=== PATIENT | female | born 1930 | race Caucasian/White ===

== ENCOUNTER 2017-03-02 17:21 | Inpatient (IN) | payer MEDICARE, OTHER ==
[~2017-03-02] VITALS: Ht 152.4 cm; Wt 43.1 kg
[~2017-03-02 17:21] MED LIST: DIOV40TA PO; DULO20 PO; PRAD75CA PO
[2017-03-02 17:25] VITALS: BP 144/71; PULSE 91; RESP 16; TEMP 98.1; O2SAT 96
[2017-03-02] MEDS ORDERED: TRAM50TA PO (18:42)
[2017-03-02] MEDS ORDERED: CART120C PO (18:42)
[2017-03-02] MEDS ORDERED: CYMB30CA PO (18:42)
[2017-03-02] MEDS ORDERED: LOSA25TA PO (18:42)
[2017-03-02] MEDS ORDERED: APIX2.5T PO (18:42)
[2017-03-02] MEDS ORDERED: SUCR1TAB PO (18:42)
--- NOTE | 2017-03-02 18:54 | PD ---
HPI Chief Complaint: Fall Time Seen by Provider: 18:40 Travel History International Travel<30 days: No Contact w/Intl Traveler<30days: No Traveled to known affect area: No History of Present Illness HPI 86 years old female complaining of left groin pain, left low quadrant abdominal pain, left ankle pain. Patient fell 3 days ago. Patient states that she hit the left side of face however denies any headache or neck pain. Patient complains of persistent pain on the left groin since then. Patient is not having started having left lower quadrant abdominal pain today. Patient also complaining of left ankle pain today. Patient denies loss of consciousness. Patient denies any chest pain or shortness of breath. Denies back pain. Patient denies any nausea vomiting diarrhea. Patient denies any focal weakness or numbness of extremity. Patient has history of atrial fibrillation, heart valve disease, stent placement and on Eliquis. Patient also has history hypertension, depression, status post appendectomy and hysterectomy. Patient's [facility] consultant Dr. Means. PFSH Past Medical History Hx Anticoagulant Therapy: Yes (ELIQUIS) Atrial Fibrillation: Yes Depression: Yes Cardiovascular Problems: Yes ("Leaky valve") Hypertension: Yes Tetanus Vaccination: > 5 Years Influenza Vaccination: No Past Surgical History Appendectomy: Yes Cardiac Surgery: Yes (Cardiac stent ) Hysterectomy: Yes Social History Alcohol Use: No Tobacco Use: No Substance Use: No Allergies-Medications (Allergen,Severity, Reaction): Coded Allergies: Demerol (Verified Allergy, Severe, Wheezing, 03/02/17) Penicillin (Verified Allergy, Severe, Hives, 03/02/17) Aspirin (Verified Allergy, Intermediate, MED INTERACTION, 03/02/17) Reported Meds & Prescriptions Reported Meds & Active Scripts Active Reported Sucralfate 1 Gm Tab 1 Gm PO Q12HR on empty stomach Losartan (Losartan Potassium) 25 Mg Tab 12.5 Mg PO DAILY Cartia Xt (Diltiazem ER 24 HR) 120 Mg Caper 120 Mg PO DAILY Cymbalta DR (Duloxetine HCl) 30 Mg Capdr 30 Mg PO DIRECTED Eliquis (Apixaban) 2.5 Mg Tab 2.5 Mg PO BID Tramadol (Tramadol HCl) 50 Mg Tab 50 Mg PO Q6H PRN Review of Systems General / Constitutional: No: Fever Eyes: No: Visual changes HENT: No: Headaches Cardiovascular: No: Chest Pain or Discomfort Respiratory: No: Shortness of Breath Gastrointestinal: Positive: Abdominal Pain Genitourinary: No: Dysuria Musculoskeletal: Positive: Pain Skin: No Rash Neurologic: No: Weakness Psychiatric: No: Depression Endocrine: No: Polydipsia Hematologic/Lymphatic: No: Easy Bruising Physical Exam Narrative GENERAL: Well-nourished, well-developed patient. SKIN: Focused skin assessment warm/dry. HEAD: Normocephalic. EYES: No scleral icterus. No injection or drainage. NECK: Supple, trachea midline. No JVD or lymphadenopathy. CARDIOVASCULAR: Regular rate and rhythm without murmurs, gallops, or rubs. RESPIRATORY: Breath sounds equal bilaterally. No accessory muscle use. GASTROINTESTINAL: Abdomen soft, nondistended. Patient had mild tenderness on palpation left lower quadrant left inguinal area. Patient has a ventral hernia. MUSCULOSKELETAL: No cyanosis, or edema. Patient has moderate tenderness to palpation of left inguinal area lateral aspect left hip. Decreased range of motion the left hip joint. Mild diffuse tenderness over the left ankle joint. BACK: Nontender without obvious deformity. No CVA tenderness. Neurologic exam: Patient awake and alert. Patient moves all extremities except decrease in range of motion of left leg. No obvious focal neurological deficit. Data Data Last Documented VS Vital Signs Date Time Temp Pulse Resp B/P Pulse Ox O2 Delivery O2 Flow Rate FiO2 03/02/17 19:15 97.8 88 18 127/72 97 Room Air Orders Complete Blood Count With Diff (03/02/17 18:46) Comprehensive Metabolic Panel (03/02/17 18:46) Prothrombin Time / Inr (Pt) (03/02/17 18:46) Act Partial Throm Time (Ptt) (03/02/17 18:46) Urinalysis - C+S If Indicated (03/02/17 18:46) Chest, Single Ap (03/02/17 18:46) Iv Access Insert/Monitor (03/02/17 18:46) Ecg Monitoring (03/02/17 18:46) Oximetry (03/02/17 18:46) Hip, Uni(Ap&Lat) W Ap Pelvis (03/02/17 18:46) Ankle, Complete ([id number]) (03/02/17 18:46) Electrocardiogram (03/02/17 20:26) Urinary Catheter Insert/Apply (03/02/17 20:26) Type And Screen (03/02/17 20:26) Sodium Chlor 0.9% 1000 Ml Inj (Ns 1000 M (03/02/17 20:30) Admit Order (Ed Use Only) (03/02/17 20:43) Admit To Inpatient (03/02/17 ) Vital Signs (Adult) Q4H (03/02/17 20:43) Activity Bed Rest (03/02/17 20:43) A And P Technician / Telemetry .CONTINUOUS (03/02/17 20:43) Sodium Chloride 0.9% Flush (Ns Flush) (03/02/17 20:45) Sodium Chloride 0.9% Flush (Ns Flush) (03/02/17 21:00) Ondansetron Inj (Zofran Inj) (03/02/17 20:45) Basic Metabolic Panel (Bmp) (03/03/17 06:00) Complete Blood Count With Diff (03/03/17 06:00) Case Management Consult (03/02/17 20:43) Naloxone Inj (Narcan Inj) (03/02/17 20:45) Inpatient Certification (03/02/17 ) Hydromorphone Pf Inj (Dilaudid Pf Inj) (03/02/17 20:45) Consult Orthopedic (03/02/17 ) Labs Laboratory Tests Test 03/02/17 03/02/17 19:00 19:10 Urine Color YELLOW Urine Turbidity CLEAR Urine pH 6.0 Urine Specific [place] 1.014 Urine Protein NEG mg/dL Urine Glucose (UA) 100 mg/dL Urine Ketones NEG mg/dL Urine Occult Blood NEG Urine Nitrite NEG Urine Bilirubin NEG Urine Leukocyte Esterase NEG Urine RBC 4-9 /hpf Urine WBC 0-2 /hpf Urine Squamous Epithelial 0-5 /hpf Cells Urine Calcium Oxalate Crystals FEW /hpf Urine Hyaline Casts 0-2 /lpf Urine Mucus OCC /lpf Microscopic Urinalysis Comment CULT NOT INDICATED White Blood Count 5.6 TH/MM3 Red Blood Count 4.19 MIL/MM3 Hemoglobin 12.5 GM/DL Hematocrit 37.8 % Mean Corpuscular Volume 90.1 FL Mean Corpuscular Hemoglobin 29.9 PG Mean Corpuscular Hemoglobin 33.2 % Concent Red Cell Distribution Width 13.7 % Platelet Count 173 TH/MM3 Mean Platelet Volume 8.8 FL Neutrophils (%) (Auto) 69.5 % Lymphocytes (%) (Auto) 16.1 % Monocytes (%) (Auto) 8.9 % Eosinophils (%) (Auto) 5.0 % Basophils (%) (Auto) 0.5 % Neutrophils # (Auto) 3.9 TH/MM3 Lymphocytes # (Auto) 0.9 TH/MM3 Monocytes # (Auto) 0.5 TH/MM3 Eosinophils # (Auto) 0.3 TH/MM3 Basophils # (Auto) 0.0 TH/MM3 CBC Comment DIFF FINAL Differential Comment Prothrombin Time 11.3 SEC Prothromb Time International 1.0 RATIO Ratio Activated Partial 38.5 SEC Thromboplast Time Sodium Level 138 MEQ/L Potassium Level 3.7 MEQ/L Chloride Level 102 MEQ/L Carbon Dioxide Level 29.0 MEQ/L Anion Gap 7 MEQ/L Blood Urea Nitrogen 20 MG/DL Creatinine 0.64 MG/DL Estimat Glomerular Filtration 88 ML/MIN Rate Random Glucose 85 MG/DL Calcium Level 8.9 MG/DL Total Bilirubin 0.5 MG/DL Aspartate Amino Transf 16 U/L (AST/SGOT) Alanine Aminotransferase 18 U/L (ALT/SGPT) Alkaline Phosphatase 56 U/L Total Protein 6.2 GM/DL Albumin 3.0 GM/DL MDM Medical Decision Making Medical Screen Exam Complete: Yes Emergency Medical Condition: Yes Interpretation(s) 2028 PM Last Impressions Hip and Pelvis X-Ray 03/02/171845 Signed Impressions: Service Date/Time: Thursday, March 02, 2017 19:27 - CONCLUSION: Subcapital left femoral neck fracture. Peyman James MD Chest X-Ray 03/02/171845 Signed Impressions: Service Date/Time: Thursday, March 02, 2017 19:39 - CONCLUSION: 1. Cardiomegaly. 2. Retrocardiac density likely hiatal hernia. Pyeman James MD Ankle X-Ray 03/02/171845 Signed Impressions: Service Date/Time: Thursday, March 02, 2017 19:35 - CONCLUSION: 1. No fracture. 2. Soft tissue swelling. 3. Pes planus. 4. Arthropathy talocalcaneal joints. Peyman James MD 2028 PM. CBC within normal limit. CMP within normal limit. UA negative. Differential Diagnosis Differential diagnoses include contusion, fracture, dislocation. Narrative Course 86 years old female with left groin pain, left ankle pain. Status post fall. Patient has history of atrial fibrillation on Eliquis. Normal saline solution 70 cc an hour. I spoke with Dr. Conn, orthopedist numerical control nesting operator. Advised nothing by mouth post midnight. Admit to medical service at the [facility]. Diagnosis Primary Impression: Fracture of femoral neck, left Qualified Code: S72.002A - Closed fracture of neck of left femur, initial encounter Additional Impression: HX: anticoagulation Admitting Information Admitting Physician Requests: it Cameron Cox MD Mar 02, 2017 18:54
[2017-03-02 19:15] VITALS: BP 127/72; PULSE 88; RESP 18; TEMP 97.8; O2SAT 97
[2017-03-02 19:19] LABS: BLOOD, URINE NEG (NEG); GLUCOSE,URINE 100 mg/dL (NEG); KETONE, URINE NEG (NEG); NITRITE,URINE NEG (NEG)
[2017-03-02 19:20] LABS: AUTOMATED NEUTROPHIL # 3.9 TH/MM3 (1.8-7.7); BASOPHIL % 0.5 % (0.0-2.0); EOSINOPHIL # 0.3 TH/MM3 (0-0.4); HEMATOCRIT 37.8 % (35.0-46.0); HEMO FLAGS DIFF FINAL; LYMPH % 16.1 % (9.0-44.0); LYMPHOCYTE # 0.9 TH/MM3 (1.0-4.8); MEAN CELL VOLUME 90.1 FL (80.0-100.0); MEAN CORPUSCULAR HEMOGLOBIN 29.9 PG (27.0-34.0); MEAN CORPUSCULAR HGB CONC 33.2 % (32.0-36.0); MONO % 8.9 % (0.0-8.0); NEUT % 69.5 % (16.0-70.0); PLATELET COUNT 173 TH/MM3 (150-450); RED BLOOD COUNT 4.19 MIL/MM3 (4.00-5.30); RED CELL DISTRIBUTION WIDTH 13.7 % (11.6-17.2); WHITE BLOOD COUNT 5.6 TH/MM3 (4.0-11.0)
[2017-03-02 19:32] LABS: APTT (PATIENT) 38.5 SEC (24.3-30.1); PROTHROMBIN TIME - PATIENT 11.3 SEC (9.8-11.6)
[2017-03-02 19:32] LABS: URINE COLOR YELLOW (YELLW/STRAW)
[2017-03-02 19:34] LABS: HYALINE CAST, URINE 0-2 /lpf (RARE); MUCUS URINE OCC /lpf (OCC); SQUAMOUS EPITHELIAL CELL URINE 0-5 /hpf (0-5)
[2017-03-02 19:39] LABS: CALCIUM OXALATE CRYSTALS,URINE FEW /hpf; COMMENT (UR) CULT NOT INDICATED; CULTURE IF INDICATED CULT NOT INDICATED; WBC, URINE 0-2 /hpf (0-5)
[2017-03-02 19:47] LABS: CHLORIDE 102 MEQ/L (98-107); POTASSIUM 3.7 MEQ/L (3.5-5.1); SODIUM (NA) 138 MEQ/L (136-145)
[2017-03-02 19:51] LABS: ANION GAP 7 MEQ/L (5-15); BLOOD UREA NITROGEN 20 MG/DL (7-18)
[2017-03-02 19:54] LABS: ALT (GPT) 18 U/L (10-53); AST (GOT) 16 U/L (15-37); GLOMERULAR FILTRATION RATE 88 ML/MIN (>89)
[2017-03-02 19:55] LABS: TOTAL BILIRUBIN ADULT 0.5 MG/DL (0.2-1.0)
[2017-03-02 19:56] LABS: ALKALINE PHOSPHATASE 56 U/L (45-117)
--- NOTE | 2017-03-02 19:57 | RADRPT ---
EXAM DATE/TIME: 03/02/2017 19:39 [facility] COMPARISON: No previous studies available for comparison. INDICATIONS : Rib pain after falling 4 days ago. MEDICAL HISTORY : Atrial fibrillation. SURGICAL HISTORY : Appendectomy. Hysterectomy. Coronary artery stent. ENCOUNTER: Initial ACUITY: 4 - 6 days PAIN SCORE: 5/10 LOCATION: Bilateral chest FINDINGS: A single view of the chest demonstrates the lungs to be symmetrically aerated without evidence of mas s, infiltrate or effusion. Cardiomegaly. Retrocardiac density.. Osseous structures are intact. CONCLUSION: 1. Cardiomegaly. 2. Retrocardiac density likely hiatal hernia. Peyman James MD on March 02, 2017 at 19:55 Board Certified Radiologist. This report was verified electronically.
--- NOTE | 2017-03-02 19:59 | RADRPT ---
EXAM DATE/TIME: 03/02/2017 19:35 [facility] COMPARISON: No previous studies available for comparison. INDICATIONS : Left ankle pain and swelling after falling 4 days ago. MEDICAL HISTORY : None. SURGICAL HISTORY : None. ENCOUNTER: Initial ACUITY: 4 - 6 days PAIN SCORE: 5/10 LOCATION: Left ankle. FINDINGS: Three view exam was performed of the left ankle. The bony structures are in normal alignment. No ev idence of fracture, dislocation.. The ankle mortise is intact. No radiopaque foreign bodies are see n. Bony mineralization is under mineralized. Pes planus. Soft tissue swelling. Arthropathy at taloca lcaneal joints. CONCLUSION: 1. No fracture. 2. Soft tissue swelling. 3. Pes planus. 4. Arthropathy talocalcaneal joints. Peyman James MD on March 02, 2017 at 19:55 Board Certified Radiologist. This report was verified electronically.
--- NOTE | 2017-03-02 20:04 | RADRPT ---
EXAM DATE/TIME: 03/02/2017 19:27 [facility] COMPARISON: No previous studies available for comparison. INDICATIONS : Left hip pain after falling 4 days ago. MEDICAL HISTORY : None. SURGICAL HISTORY : None. ENCOUNTER: Initial ACUITY: 4 - 6 days PAIN SCORE: 7/10 LOCATION: Left hip. FINDINGS: Examination of the left hip was performed with AP Pelvis. Subcapital femoral neck fracture with minim al displacement. Mild degenerative changes. Soft tissue swelling.. The acetabulum is grossly intact. CONCLUSION: Subcapital left femoral neck fracture. Peyman James MD on March 02, 2017 at 20:02 Board Certified Radiologist. This report was verified electronically.
[2017-03-02 20:15] VITALS: BP 146/78; PULSE 90; RESP 18; O2SAT 95
[2017-03-02] MEDS ORDERED: SODIUM CHLOR 0.9% 1000 ML INJ 1,000 ML IV SCH (20:30)
[2017-03-02] MEDS ORDERED: ONDANSETRON HCL 4 MG/2 ML VIAL IVP PRN (20:45)
[2017-03-02] MEDS ORDERED: HYDROmorphone HCL PF 1 MG/ML VIAL IV PUSH PRN (20:45)
[2017-03-02] MEDS ORDERED: SODIUM CHLORIDE 0.9% FLUSH 10 ML FLUSH IV FLUSH PRN (20:45)
[2017-03-02] MEDS ORDERED: NALOXONE HCL 0.4 MG/ML AMP IV PRN (20:45)
[2017-03-02] MEDS ORDERED: SODIUM CHLORIDE 0.9% FLUSH 10 ML FLUSH IV FLUSH SCH (21:00)
[2017-03-02 21:15] VITALS: BP 141/83; PULSE 92; RESP 18; O2SAT 97
[2017-03-02 22:15] VITALS: BP 143/75; PULSE 88; RESP 16; O2SAT 95
[2017-03-02 23:15] VITALS: BP 153/68; PULSE 87; RESP 16; O2SAT 95
[2017-03-03] VITALS (11 sets, daily range): BP systolic 110–168; BP diastolic 62–85; PULSE 83–92; RESP 16–20; TEMP 95.7–98.2; O2SAT 94–100
[2017-03-03] MEDS ORDERED: HYDROmorphone HCL PF 1 MG/ML VIAL IV PUSH PRN (01:15)
--- NOTE | 2017-03-03 04:24 | HHI.HP ---
[facility] Tone Vael[facility] M.D. Admission Diagnosis fracture left femoral neck. Patient's on anticoagulation. Diagnoses: (1) Fracture of femoral neck, left Chief Complaint: Left hip pain s/p fall Travel History International Travel<30 Days: No Contact w/Intl Traveler <30 Da: No Traveled to Known Affected Are: No History of Present Illness Written by Farhana Miranda, acting as scribe for Dr. Mcfarland on 03/03/17 at 04:24. The patient states that she fell on Wednesday and has had progressively worsening pain. She was at her grandson's house, turned around, didn't see ottoman, and tripped over an ottoman that she did not see Reports weight loss over the past year or so Hit her head during fall Grandson helped her back up Reports generalized weakness Denies fever, n/v/d, black or red stool, hematuria, chest pain, shortness of breath Reports some dysuria, frequent urination, a little bit of dizziness, fatigue Review of Systems Except as stated in HPI: all other systems reviewed are Neg Past Family Social History Past Medical History Formerly on thyroid medications but hasn't been on for years - states blood work has been normal Hypertension CAD s/p stent placement Atrial fibrillation chronic pain in back and joints Denies COPD, emphysema, asthma, liver problems, kidney problems, DVT, PE, CVA, seizures, cancers . Past Surgical History Cardiac stent C Section Hysterectomy Appendectomy . Reported Medications Reported Meds & Active Scripts Active Reported Sucralfate 1 Gm Tab 1 Gm PO Q12HR on empty stomach Losartan (Losartan Potassium) 25 Mg Tab 12.5 Mg PO DAILY Cartia Xt (Diltiazem ER 24 HR) 120 Mg Caper 120 Mg PO DAILY Cymbalta DR (Duloxetine HCl) 30 Mg Capdr 30 Mg PO DIRECTED Eliquis (Apixaban) 2.5 Mg Tab 2.5 Mg PO BID Tramadol (Tramadol HCl) 50 Mg Tab 50 Mg PO Q6H PRN . Allergies: Coded Allergies: Demerol (Verified Allergy, Severe, Wheezing, 03/02/17) Penicillin (Verified Allergy, Severe, Hives, 03/02/17) Aspirin (Verified Allergy, Intermediate, MED INTERACTION, 03/02/17) Active Ordered Medications Current Medications Sodium Chloride (NS 1000 ml Inj) 1,000 ml @ 70 mls/hr [id number] IV Last administered on 03/02/17 21:33; Start 03/02/17 at 20:30 Sodium Chloride (NS Flush) 2 ml UNSCH PRN IV FLUSH FLUSH AFTER USING IV ACCESS ; Start 03/02/17 at 20:45 Sodium Chloride (NS Flush) 2 ml BID IV FLUSH ; Start 03/02/17 at 21:00 Ondansetron HCl (Zofran Inj) 4 mg Q6H PRN IVP NAUSEA OR VOMITING; Start at 20:45 Naloxone HCl (Narcan Inj) 0.4 mg UNSCH PRN IV SEE LABEL COMMENTS; Start at 20:45 Hydromorphone HCl (Dilaudid Pf Inj) 0.2 mg Q4H PRN IV PUSH pain >5 Last administered on 03/02/17 21:33; Start 03/02/17 at 20:45; Stop 03/03/17 at 01:03 ; Status DC Hydromorphone HCl (Dilaudid Pf Inj) 0.2 mg Q3H PRN IV PUSH pain >5 Last administered on 03/03/17 01:28; Start 03/03/17 at 01:15 . Family History brother had bone cancer father had enlarged heart mother with heart problems . Social History in 2008 Relocated here to be near daughter in 2009 Tobacco: denies Alcohol: denies . Physical Exam Vital Signs Vital Signs Date Time Temp Pulse Resp B/P Pulse Ox O2 Delivery O2 Flow Rate FiO2 03/03/17 03:05 88 18 142/76 95 03/03/17 02:15 98.2 88 16 168/77 95 Room Air 03/03/17 01:15 88 16 150/79 94 Room Air 03/03/17 00:15 88 18 157/85 94 Room Air 03/03/17 00:04 Room Air 03/02/17 23:15 95 Room Air 03/02/17 23:15 87 16 153/68 95 Room Air 03/02/17 22:15 88 16 143/75 95 Room Air 03/02/17 22:00 16 03/02/17 21:15 92 18 141/83 97 Room Air 03/02/17 20:15 90 18 146/78 95 Room Air 03/02/17 19:15 97.8 88 18 127/72 97 Room Air 03/02/17 19:15 97 Room Air 03/02/17 19:15 88 97 Room Air 03/02/17 17:25 98.1 91 16 144/71 96 Physical Exam GENERAL: This is a frail, thin elderly female patient, in no apparent distress. SKIN: No rashes, ecchymoses or lesions. Cool and dry. HEAD: Atraumatic. Normocephalic. EYES: No scleral icterus. No injection or drainage. ENT: Nose without bleeding, purulent drainage. NECK: Trachea midline. No JVD or lymphadenopathy. CARDIOVASCULAR: Regular rate and rhythm without murmurs, gallops, or rubs. RESPIRATORY: Clear to auscultation. Breath sounds equal bilaterally. No wheezes , rales, or rhonchi. GASTROINTESTINAL: Abdomen soft, non-tender, nondistended. No guarding. MUSCULOSKELETAL: Extremities without clubbing, cyanosis, or edema. No calf tenderness. Left hip pain with movement. NEUROLOGICAL: Awake and alert. Motor and sensory grossly within normal limits. Normal speech. . Laboratory Laboratory Tests Test 03/02/17 03/02/17 03/02/17 19:00 19:10 21:07 Urine Color YELLOW Urine Turbidity CLEAR Urine pH 6.0 Urine Specific [place] 1.014 Urine Protein NEG Urine Glucose (UA) 100 Urine Ketones NEG Urine Occult Blood NEG Urine Nitrite NEG Urine Bilirubin NEG Urine Leukocyte Esterase NEG Urine RBC 4-9 Urine WBC 0-2 Urine Squamous Epithelial 0-5 Cells Urine Calcium Oxalate Crystals FEW Urine Hyaline Casts 0-2 Urine Mucus OCC Microscopic Urinalysis Comment CULT NOT INDICATED White Blood Count 5.6 Red Blood Count 4.19 Hemoglobin 12.5 Hematocrit 37.8 Mean Corpuscular Volume 90.1 Mean Corpuscular Hemoglobin 29.9 Mean Corpuscular Hemoglobin 33.2 Concent Red Cell Distribution Width 13.7 Platelet Count 173 Mean Platelet Volume 8.8 Neutrophils (%) (Auto) 69.5 Lymphocytes (%) (Auto) 16.1 Monocytes (%) (Auto) 8.9 Eosinophils (%) (Auto) 5.0 Basophils (%) (Auto) 0.5 Neutrophils # (Auto) 3.9 Lymphocytes # (Auto) 0.9 Monocytes # (Auto) 0.5 Eosinophils # (Auto) 0.3 Basophils # (Auto) 0.0 CBC Comment DIFF FINAL Differential Comment Prothrombin Time 11.3 Prothromb Time International 1.0 Ratio Activated Partial 38.5 Thromboplast Time Sodium Level 138 Potassium Level 3.7 Chloride Level 102 Carbon Dioxide Level 29.0 Anion Gap 7 Blood Urea Nitrogen 20 Creatinine 0.64 Estimat Glomerular Filtration 88 Rate Random Glucose 85 Calcium Level 8.9 Total Bilirubin 0.5 Aspartate Amino Transf 16 (AST/SGOT) Alanine Aminotransferase 18 (ALT/SGPT) Alkaline Phosphatase 56 Total Protein 6.2 Albumin 3.0 Blood Type A POSITIVE Antibody Screen NEGATIVE Blood Bank Comment Result Diagram: 03/02/17190903/02/171909 Imaging Last Impressions Hip and Pelvis X-Ray 03/02/171845 Signed Impressions: Service Date/Time: Thursday, March 02, 2017 19:27 - CONCLUSION: Subcapital left femoral neck fracture. Peyman James MD Chest X-Ray 03/02/171845 Signed Impressions: Service Date/Time: Thursday, March 02, 2017 19:39 - CONCLUSION: 1. Cardiomegaly. 2. Retrocardiac density likely hiatal hernia. Peyman James MD Ankle X-Ray 03/02/171845 Signed Impressions: Service Date/Time: Thursday, March 02, 2017 19:35 - CONCLUSION: 1. No fracture. 2. Soft tissue swelling. 3. Pes planus. 4. Arthropathy talocalcaneal joints. Peyman James MD . Assessment and Plan Problem List: (1) Fracture of femoral neck, left ICD Code: S72.002A Status: Acute Assessment and Plan 86 y/o who fell at grandson's house by tripping on furniture on 02/27 who presented to ED for evaluation of progressively worsening left hip pain. Fracture left femoral neck - consult orthopedic surgery - Hydromorphone 0.2 mg IV q3h PRN pain - Bedrest History of thyroid disease with reported weight loss and fatigue - will check TSH- Fall with head impact - check Head CT to r/o intracranial pathology Colace BID - PRN laxatives for constipation DVT prophylaxis - SCDs/TEDs . Discussed Condition With ER physician, patient, and RN Physician Certification 2 Midnight Certification Type: Admission for Inpatient Services Order for Inpatient Services The services are ordered in accordance with Medicare regulations or non- Medicare payer requirements, as applicable. In the case of services not specified as inpatient-only, they are appropriately provided as inpatient services in accordance with the 2-midnight benchmark. Estimated LOS (days): 3 days is the estimated time the patient will need to remain in the hospital, assuming treatment plan goals are met and no additional complications. Post-Hospital Plan: Not yet determined Problem Qualifiers (1) Fracture of femoral neck, left: Qualified Code: S72.002A - Closed fracture of neck of left femur, initial encounter Farhana Miranda Mar 03, 2017 04:24
[2017-03-03] MEDS ORDERED: BISACODYL 10 MG SUPP RECTAL PRN (05:00)
[2017-03-03] MEDS ORDERED: MAGNESIUM HYDROXIDE SUSP 30 ML CUP PO ONE (06:00)
[2017-03-03] MEDS: SUCRALFATE 1 GM TAB PO SCH ×2 (07:00→16:40)
--- NOTE | 2017-03-03 07:03 | PD.ORT.PN ---
Subjective Subjective Remarks s/p fall at home on wednesday reports left hip pain that has gotten progressively worse Objective Vitals Vital Signs Date Time Temp Pulse Resp B/P Pulse Ox O2 Delivery O2 Flow Rate FiO2 03/03/17 04:35 97.8 90 16 144/77 94 03/03/17 03:05 88 18 142/76 95 03/03/17 02:15 98.2 88 16 168/77 95 Room Air 03/03/17 01:58 16 03/03/17 01:15 88 16 150/79 94 Room Air 03/03/17 00:15 88 18 157/85 94 Room Air 03/03/17 00:04 Room Air 03/02/17 23:15 95 Room Air 03/02/17 23:15 87 16 153/68 95 Room Air 03/02/17 22:15 88 16 143/75 95 Room Air 03/02/17 22:00 16 03/02/17 21:15 92 18 141/83 97 Room Air 03/02/17 20:15 90 18 146/78 95 Room Air 03/02/17 19:15 97.8 88 18 127/72 97 Room Air 03/02/17 19:15 97 Room Air 03/02/17 19:15 88 97 Room Air 03/02/17 17:25 98.1 91 16 144/71 96 I/O 03/02/17 03/02/17 03/02/17 03/03/17 03/03/17 03/03/17 07:00 15:00 23:00 07:00 15:00 23:00 Output Total 1125 ml Balance -1125 ml Output Urine Total 1125 ml # Voids 1 0 Result Diagram: 03/02/17190903/02/171909 Other Results Laboratory Tests Test 03/02/17 19:10 Prothrombin Time 11.3 SEC (9.8-11.6) Prothromb Time International 1.0 RATIO Ratio Imaging Last 24 hours Impressions Hip and Pelvis X-Ray 03/02/171845 Signed Impressions: Service Date/Time: Thursday, March 02, 2017 19:27 - CONCLUSION: Subcapital left femoral neck fracture. Peyman James MD Chest X-Ray 03/02/171845 Signed Impressions: Service Date/Time: Thursday, March 02, 2017 19:39 - CONCLUSION: 1. Cardiomegaly. 2. Retrocardiac density likely hiatal hernia. Peyman James MD Ankle X-Ray 03/02/17 1846 Signed Impressions: Service Date/Time: Thursday, March 02, 2017 19:35 - CONCLUSION: 1. No fracture. 2. Soft tissue swelling. 3. Pes planus. 4. Arthropathy talocalcaneal joints. Peyman James MD Objective Remarks LLE: pain with hip motion. nvi Assessment & Plan Assessment and Plan 1) Left Femoral Neck Fx -npo -sign consents -surgery this AM for Perc pinning Aldo Khan Mar 03, 2017 07:03
[2017-03-03] MEDS ORDERED: GENTAMICIN SULFATE 80 MG/2 ML VIAL ONE (07:21)
[2017-03-03] MEDS ORDERED: VANCOMYCIN HCL 1000 MG VIAL ONE (07:21)
[2017-03-03] MEDS ORDERED: ceFAZolin INJ 1,000 MG VIAL ONE (07:21)
[2017-03-03] MEDS ORDERED: MORPHINE SULFATE 4 MG/ML INJ ONE (07:42)
[2017-03-03] MEDS ORDERED: ACETAMINOPHEN 1000 MG/100 ML VIAL IV ONE (07:49)
[2017-03-03] MEDS ORDERED: CLINDAMYCIN PHOS 600 MG/4 ML VIAL ONE (08:17)
--- NOTE | 2017-03-03 08:52 | PD.OP ---
cc: Chi Marie MD Operative Report Date of Surgery: Mar 03, 2017 Preoperative Diagnosis: Impacted left femoral neck fracture Postoperative Diagnosis: Procedure: Left hip pinning Anesthesia: Gen. Surgeon: Chi Marie Aircraft Engine Dismantler(s): DALJIT Connor PA-C The surgical procedure was assisted by my physician admissions assistant. My P.A. presence was necessary throughout this case for the manipulation and positioning of the surgical extremity. My P.A. was assisting me throughout the duration of this procedure. The skill set of a physician admissions assistant was medically necessary to complete this procedure. During the surgical case the customer technical services manager was working at the back table and the physician admissions assistant was directly assisting me. Operation and Findings: Plan of activity: TTWB 3 weeks, then 50% weightbearing 3 weeks Patient was seen and evaluated preoperatively. The patient has significant hip pain from impacted femoral neck fracture. The risk and benefits of surgery were discussed in depth with the patient to include bleeding infection nonunion malunion, avascular necrosis and need for hip replacement painful hardware as well as medical competitions including but not stroke heart attack and . Informed consent was obtained. Operative site was marked. Patient was brought to the operating room and placed on fracture table. IV sedation was administered by anesthesiologist. Timeout procedure was performed. Hip and leg were prepped with alcohol followed by Hibiclens and draped in the usual sterile fashion. IV antibiotics were given prior to incision. Procedure began with evaluation of fracture under fluoroscopy. Leg was gently manipulated to improve alignment. Excellent reduction was achieved. Fluoroscopy was used to confirm reduction. A three cm incision was along the lateral aspect of the proximal femur . Subcutaneous tissue was dissected bluntly. Three guidepins were placed through the lateral cortex of the proximal femur. Guide pins were placed in an inverted triangle position. Guide pins were advanced across the fracture site into the femoral head. Fluoroscopy confirmed appropriate guidepin placement. The screw lengths were measured. A cannulated drill was placed over each of the guide pins. Appropriate length Synthes 7.3 cannulated screws were placed over the guidepins. Good compression was applied across the fracture. Final fluoroscopy revealed well aligned fracture with well-placed hardware. Incision was closed with 3-0 Vicryl and toby. Sterile dressings were applied. Patient was awakened and transferred to recovery room. Chi Marie MD Mar 03, 2017 08:52
[2017-03-03] MEDS ORDERED: Post-op Orders (for Pharmacy) MISC XX ONE (09:00)
[2017-03-03] MEDS ORDERED: MORPHINE SULFATE 4 MG/ML INJ IV PUSH PRN (09:00)
[2017-03-03] MEDS: DOCUSATE SODIUM 100 MG CAP PO SCH ×2 (09:00→19:43)
[2017-03-03] MEDS ORDERED: fentaNYL CITRATE 250 MCG/5 ML AMP ONE (09:11)
--- NOTE | 2017-03-03 09:14 | HHI.PR ---
Subjective Remarks Follow-up left femur fracture. Complaining of chronic lower back pain. Discussed with RN Objective Vitals Vital Signs Date Time Temp Pulse Resp B/P Pulse Ox O2 Delivery O2 Flow Rate FiO2 03/03/17 08:00 96.8 83 20 138/84 95 03/03/17 07:50 95 03/03/17 04:35 97.8 90 16 144/77 94 03/03/17 03:05 88 18 142/76 95 03/03/17 02:15 98.2 88 16 168/77 95 Room Air 03/03/17 01:58 16 03/03/17 01:15 88 16 150/79 94 Room Air 03/03/17 00:15 88 18 157/85 94 Room Air 03/03/17 00:04 Room Air 03/02/17 23:15 95 Room Air 03/02/17 23:15 87 16 153/68 95 Room Air 03/02/17 22:15 88 16 143/75 95 Room Air 03/02/17 22:00 16 03/02/17 21:15 92 18 141/83 97 Room Air 03/02/17 20:15 90 18 146/78 95 Room Air 03/02/17 19:15 97.8 88 18 127/72 97 Room Air 03/02/17 19:15 97 Room Air 03/02/17 19:15 88 97 Room Air 03/02/17 17:25 98.1 91 16 144/71 96 I/O 03/02/17 03/02/17 03/02/17 03/03/17 03/03/17 03/03/17 06:59 14:59 22:59 06:59 14:59 22:59 Intake Total 0 ml Output Total 1525 ml Balance -1525 ml Intake Oral 0 ml Output Urine Total 1525 ml # Voids 1 0 # Bowel Movements 0 Result Diagram: 03/02/17190903/02/171909 Imaging Last Impressions Hip and Pelvis X-Ray 03/02/171845 Signed Impressions: Service Date/Time: Thursday, March 02, 2017 19:27 - CONCLUSION: Subcapital left femoral neck fracture. Peyman James MD Chest X-Ray 03/02/171845 Signed Impressions: Service Date/Time: Thursday, March 02, 2017 19:39 - CONCLUSION: 1. Cardiomegaly. 2. Retrocardiac density likely hiatal hernia. Peyman James MD Ankle X-Ray 03/02/17 0856 Signed Impressions: Service Date/Time: Thursday, March 02, 2017 19:35 - CONCLUSION: 1. No fracture. 2. Soft tissue swelling. 3. Pes planus. 4. Arthropathy talocalcaneal joints. Peyman James MD Objective Remarks Well-developed, well-nourished in distress due to pain Skin is warm no rashes HEENT pupils equal and reactive to light and jaundice Neck no JVD and no bruit Chest and lungs equal expansion clear to auscultation Regular rate and rhythm no murmur Abdomen soft nontender Extremities no edema tender left hip Alert and oriented nonfocal Procedures Percutaneous pinning left thigh A/P Problem List: (1) Fracture of femoral neck, left ICD Code: S72.002A Status: Acute Assessment and Plan 86 y/o who fell at grandson's house by tripping on furniture on 02/27 who presented to ED for evaluation of progressively worsening left hip pain. Fracture left femoral neck status post percutaneous pinning. Stable continue postoperative care with PT, incentive spirometry, wound care, pain management with Lortab and IV morphine and DVT prophylaxis with Lovenox History of thyroid disease with reported weight loss and fatigue -Follow-up TSH Fall with head impact -Follow up Head CT to r/o intracranial pathology Hypertension. Stable continue losartan and monitor Coronary artery disease status post stent. EKG interpreted by me shows A. fib with poor R-wave progression no ST T changes. Denies chest pain. We'll continue to monitor Atrial fibrillation with controlled ventricular response. Continue Cartia and restart Eliquis when cleared by orthopedic surgery Chronic pain. Continue Cymbalta Colace BID - PRN laxatives for constipation DVT prophylaxis - SCDs/TEDs and Lovenox Discharge Planning Rehabilitation versus home care Problem Qualifiers (1) Fracture of femoral neck, left: Qualified Code: S72.002A - Closed fracture of neck of left femur, initial encounter Johann Salazar MD Mar 03, 2017 09:14
--- NOTE | 2017-03-03 09:43 | MB ---
cc: [facility] DATE OF ADMISSION 03/02/2017 DATE OF CONSULTATION 03/03/2017 REASON FOR CONSULTATION Left femoral neck fracture. CONSULTING PHYSICIAN Dr. Covington. HISTORY Vernell is an 86-year-old female who had a fall on Wednesday. She had immediate left hip pain. She was helped up by her grandson. She has had difficulty ambulating since her fall. She has had continued pain. The pain has started to get worse. She presented to the emergency room where x-rays revealed a right femoral neck fracture. She is currently awake and alert on the orthopedic floor. Her only complaint is her left hip. Pain is worse with movement. She denies dizziness, syncope or loss of consciousness. PAST MEDICAL HISTORY ILLNESSES 1. Hypertension. 2. Hypothyroidism. 3. Coronary artery disease. 4. Chronic back pain. SURGERIES 1. Cardiac stent placement. 2. . 3. Hysterectomy. 4. Appendectomy. MEDICATIONS 1. Sucralfate. 2. Losartan. 3. Cartia. 4. Cymbalta. 5. Eliquis. 6. Tramadol. ALLERGIES DEMEROL. FISH OIL. ASA. FAMILY HISTORY Positive for cancer in her brother and heart problems in her mother and father. SOCIAL HISTORY The patient is . She denies alcohol, tobacco or drug use. REVIEW OF SYSTEMS The patient denies headache, visual changes, neck pain, chest pain, shortness of breath, abdominal pain, nausea, vomiting or recent weight loss. She complains of left hip pain. The pain is worse with movement. PHYSICAL EXAMINATION GENERAL: The patient is a thin 86-year female in no acute distress. She is awake and alert. She is alert and oriented x 3. VITAL SIGNS: Temperature 97.8, pulse 90, respirations 16, blood pressure 144/77, O2 sats 94% on room air. HEAD: The patient is normocephalic. Pupils are equal. NECK: Soft, nontender. Trachea is midline. ABDOMEN: Soft, nontender, nondistended. EXTREMITIES: Examination of the bilateral upper extremities reveals no pain with shoulder, elbow or wrist motion. She has intact sensation in all fingers bilaterally. Advisory [employer] Associate strength is +5. Radial pulses are palpable. Examination of the left leg reveals pain with any hip motion. She is diffusely tender around the hip. She has minimal tenderness in her knee, tibia or ankle. Skin is intact. Dorsalis pedis pulse is palpable. Sensation is intact to the left foot. Examination of the right leg reveals no pain with hip, knee or ankle motion. Skin is intact. Dorsalis pedis pulse is palpable. X-RAYS X-rays of the left hip were reviewed. S-rays reveal a mildly impacted left femoral neck fracture. IMPRESSION 1. Impacted left femoral neck fracture. 2. Osteoporosis. 3. Hypothyroidism. 4. Coronary artery disease. 5. Hypertension. PLAN Treatment options were discussed with the patient. At this point I would recommend left hip pinning. I explained that without surgery the fracture will likely displace. If the fracture displaces, she will likely need a partial Hip replacement. The risks of surgery include bleeding, infection, injury arteries, nerves and blood vessels, nonunion, malunion, painful hardware, avascular necrosis, need for hip replacement as well as medical complications including blood clot, stroke, heart attack and . All questions were answered. I will plan on surgery today. A mid-level provider in my office (nurse practitioner or physician blood bank assistant) may see this patient on follow-up visits and continue to implement the objectives of this plan including: Starting or adjusting medications, injections , cast application, orthotics, brace application, physical therapy, radiological studies (including x-ray, MRI, CT, ultrasound, bone scan), vascular studies, neurologic studies, specialist consultation, and proceeding with surgical management, as appropriate. Chi MD MARYJO Hollins/ELSI /8:52 AM /9:26 AM MADDIE
[2017-03-03] MEDS ORDERED: PILL SPLITTER OTHER PRN (09:45)
[2017-03-03] MEDS ORDERED: SODIUM CHLORIDE 0.9% FLUSH 10 ML FLUSH IV FLUSH PRN (09:45)
[2017-03-03] MEDS: CHOLECALCIFEROL (VIT D3) 5000 UNIT CAP PO SCH (10:00)
[2017-03-03] MEDS ORDERED: ERGOCALCIFEROL (VIT D2) 50,000 UNIT CAP PO ONE (10:00)
[2017-03-03] MEDS ORDERED: *ONDANSETRON 4 MG VIAL PERIprocedural Use ONLY ONE (10:40)
--- NOTE | 2017-03-03 11:39 | RADRPT ---
EXAM DATE/TIME: 03/03/2017 10:56 [facility] COMPARISON: CT BRAIN W/O CONTRAST, June 13, 2012, 17:49. INDICATIONS : Fall yesterday, possibly hit head. RADIATION DOSE: 30.87 CTDIvol (mGy) MEDICAL HISTORY : Hypertension. Cardiovascular disease SURGICAL HISTORY : Appendectomy. Hysterectomy. ENCOUNTER: Initial ACUITY: 1 day PAIN SCALE: 0/10 LOCATION: cranial TECHNIQUE: Multiple contiguous axial images were obtained of the head. Using automated exposure control and adj ustment of the mA and/or kV according to patient size, radiation dose was kept as low as reasonably a chievable to obtain optimal diagnostic quality images. DICOM format image data is available electro nically for review and comparison. FINDINGS: CEREBRUM: The ventricles are normal for age. No evidence of midline shift, mass lesion, hemorrhage or acute in farction. No extra-axial fluid collections are seen. POSTERIOR FOSSA: The cerebellum and brainstem are intact. The 4th ventricle is midline. The cerebellopontine angle i s unremarkable. EXTRACRANIAL: The visualized portion of the orbits is intact. SKULL: The calvaria is intact. No evidence of skull fracture. CONCLUSION: Negative for acute traumatic injury Marc Beth MD FACR on March 03, 2017 at 11:37 Board Certified Radiologist. This report was verified electronically.
[2017-03-03] MEDS ORDERED: PHENYLEPH/NS 1000 MCG/10 ML SYR IV ONE (12:00)
[2017-03-03] MEDS ORDERED: ePHEDrine/NS 25 MG/5 ML SYR IV ONE (12:00)
[2017-03-03] MEDS ORDERED: PROPOFOL 200 MG/20 ML AMP IV ONE (12:00)
[2017-03-03] MEDS ORDERED: ONDANSETRON HCL 4 MG/2 ML VIAL IV PUSH ONE (12:00)
--- NOTE | 2017-03-03 12:38 | RADRPT ---
EXAM DATE/TIME: 03/03/2017 11:22 [facility] COMPARISON: No previous studies available for comparison. INDICATIONS : Lower back pain with no known injury. MEDICAL HISTORY : None. SURGICAL HISTORY : None. ENCOUNTER: Initial ACUITY: 2 days PAIN SCORE: 10/10 LOCATION: Left lower back. FINDINGS: Degenerative changes and scoliosis of the thoracolumbar spine are noted. Mild compression deformitie s involving L1, L2 and L3 are noted. An inferior vena cava filter is noted. CONCLUSION: 1. Mild compression deformities involving L1, L2 and L3 of indeterminate ages. 2. Degenerative changes and scoliosis of the thoracolumbar spine. Daquan Reed MD on March 03, 2017 at 12:21 Board Certified Radiologist. This report was verified electronically.
[2017-03-03] MEDS: DULoxetine HCl DR 30 MG CAP PO SCH (12:58)
[2017-03-03] MEDS: DILTIAZEM-CD 120 MG CAP ER PO SCH (12:59)
[2017-03-03] MEDS: ACETAMINOPHEN/HYDROcodone 325 MG/5 MG TAB PO PRN ×2 (12:59→19:43)
[2017-03-03] MEDS: SODIUM CHLORIDE 0.9% FLUSH 10 ML FLUSH IV FLUSH SCH ×2 (13:00→19:49)
[2017-03-03] MEDS: LOSARTAN 25 MG TAB PO SCH (13:25)
[2017-03-03 15:25] LABS: BICARBONATE 30.4 MEQ/L (21.0-32.0); POTASSIUM 3.3 MEQ/L (3.5-5.1)
--- NOTE | 2017-03-03 15:58 | RADRPT ---
EXAM DATE/TIME: 03/03/2017 08:44 [facility] COMPARISON: No previous studies available for comparison. INDICATIONS : Left hip pinning. MEDICAL HISTORY : None. SURGICAL HISTORY : None. ENCOUNTER: Subsequent ACUITY: 2 days PAIN SCORE: Non-responsive. LOCATION: Left hip. FINDINGS: Three screws are identified within the left proximal femur status post ORIF. Degenerative changes ar e noted involving the left hip joint. CONCLUSION: 1. Status post ORIF of left proximal femur fracture with three screws which appear to be in good posi tion. 2. Degenerative changes involving the left hip joint. Daquan Reed MD on March 03, 2017 at 15:54 Board Certified Radiologist. This report was verified electronically.
[2017-03-03] MEDS: POLYETHYLENE GLYCOL 17 GM PKG PO SCH (19:49)
--- NOTE | 2017-03-03 20:59 | EKG ---
Date Performed: 03/02/2017 Time Performed: 20:42:03 PTAGE: 86 years EKG: ATRIAL FIBRILLATION SEPTAL MYOCARDIAL INFARCTION ABNORMAL ECG PREVIOUS TRACING : 08/28/2011 10.42 Compared to prior tracing no significant change DOCTOR: Carrie Daugherty Interpretating Date/Time 03/03/2017 20:57:45
[2017-03-04] VITALS (8 sets, daily range): BP systolic 131–168; BP diastolic 76–96; PULSE 78–95; RESP 16–18; TEMP 97–98.7; O2SAT 97–99
[2017-03-04] MEDS: ACETAMINOPHEN/HYDROcodone 325 MG/5 MG TAB PO PRN ×2 (00:05→05:01)
[2017-03-04] MEDS: SUCRALFATE 1 GM TAB PO SCH ×2 (05:00→15:15)
--- NOTE | 2017-03-04 06:30 | PD.ORT.PN ---
Subjective Subjective Remarks Still having difficulty with pain. No new complaints Objective Vitals Vital Signs Date Time Temp Pulse Resp B/P Pulse Ox O2 Delivery O2 Flow Rate FiO2 03/04/17 04:05 98.7 95 17 167/79 97 03/04/17 00:42 97.8 88 16 155/76 98 03/03/17 21:00 90 03/03/17 20:05 96.8 92 16 125/68 99 03/03/17 16:51 95.7 85 20 110/62 98 03/03/17 13:07 89 16 135/65 03/03/17 11:55 96.3 83 16 122/77 100 03/03/17 10:45 97.6 86 15 129/58 99 Nasal Cannula 3 03/03/17 10:30 88 15 131/63 99 Nasal Cannula 3 03/03/17 10:00 90 15 153/75 99 Nasal Cannula 3 03/03/17 09:45 91 15 151/78 99 Nasal Cannula 3 03/03/17 09:30 91 14 151/74 99 Nasal Cannula 3 03/03/17 09:15 95 14 142/68 100 Nasal Cannula 3 03/03/17 09:06 97.5 94 14 134/67 100 Nasal Cannula 3 03/03/17 08:00 96.8 83 20 138/84 95 03/03/17 07:50 95 I/O 03/03/17 03/03/17 03/03/17 03/04/17 03/04/17 03/04/17 07:00 15:00 23:00 07:00 15:00 23:00 Intake Total 0 ml 830 ml 240 ml Output Total 1525 ml 775 ml 500 ml Balance -1525 ml 55 ml -260 ml Intake Oral 0 ml 240 ml 240 ml IV Total 90 ml Other 500 ml Output Urine Total 1525 ml 700 ml 500 ml Estimated Blood Loss 75 ml # Voids 0 # Bowel Movements 0 0 0 Result Diagram: 03/02/17 1910 03/03/17 1341 Imaging Last 72 hours Impressions Lumbar Spine X-Ray 03/03/17 0000 Signed Impressions: Service Date/Time: Friday, March 03, 2017 11:22 - CONCLUSION: 1. Mild compression deformities involving L1, L2 and L3 of indeterminate ages. 2. Degenerative changes and scoliosis of the thoracolumbar spine. Daquan Reed MD Hip X-Ray 03/03/17 0000 Signed Impressions: Service Date/Time: Friday, March 03, 2017 08:44 - CONCLUSION: 1. Status post ORIF of left proximal femur fracture with three screws which appear to be in good position. 2. Degenerative changes involving the left hip joint. Daquan Reed MD Head CT 03/03/17 0000 Signed Impressions: Service Date/Time: Friday, March 03, 2017 10:56 - CONCLUSION: Negative for acute traumatic injury Marc Beth MD FACR Hip and Pelvis X-Ray 03/02/171845 Signed Impressions: Service Date/Time: Thursday, March 02, 2017 19:27 - CONCLUSION: Subcapital left femoral neck fracture. Peyman James MD Chest X-Ray 03/02/171845 Signed Impressions: Service Date/Time: Thursday, March 02, 2017 19:39 - CONCLUSION: 1. Cardiomegaly. 2. Retrocardiac density likely hiatal hernia. Peyman James MD Ankle X-Ray 03/02/171845 Signed Impressions: Service Date/Time: Thursday, March 02, 2017 19:35 - CONCLUSION: 1. No fracture. 2. Soft tissue swelling. 3. Pes planus. 4. Arthropathy talocalcaneal joints. Peyman James MD Last 24 hours Impressions Hip and Pelvis X-Ray 03/02/171845 Signed Impressions: Service Date/Time: Thursday, March 02, 2017 19:27 - CONCLUSION: Subcapital left femoral neck fracture. Peyman James MD Chest X-Ray 03/02/171845 Signed Impressions: Service Date/Time: Thursday, March 02, 2017 19:39 - CONCLUSION: 1. Cardiomegaly. 2. Retrocardiac density likely hiatal hernia. Peyman James MD Ankle X-Ray 03/02/171845 Signed Impressions: Service Date/Time: Thursday, March 02, 2017 19:35 - CONCLUSION: 1. No fracture. 2. Soft tissue swelling. 3. Pes planus. 4. Arthropathy talocalcaneal joints. Peyman James MD Objective Remarks Left lower extremity: Clean dry dressings intact. Distally neurovascularly intact. Strong dorsiflexion plantar flexion foot Assessment & Plan Assessment and Plan 1) Left Femoral Neck Fx PCP POD 1 Physical therapytoe-touch weightbearing left lower extremity Daily dressing changes beginning POD 2 with Xeroform and Primapore Lovenox Physical therapy to also work with bedside commode X-rays are negative for any new compression fractures. Has significant degenerative changes to her lumbar spine Case management for rehabilitation placement Follow-up Dr. Marie or PA in 2 weeks Bib Smith Jr. Mar 04, 2017 06:30
[2017-03-04] MEDS ORDERED: CALCTAB19 PO (06:34)
[2017-03-04] MEDS ORDERED: HYDR-3580 PO (06:34)
[2017-03-04] MEDS ORDERED: ERGO1CAP30 PO (06:34)
[2017-03-04] MEDS ORDERED: WALKER/ADULT/FO1 MIS (06:34)
[2017-03-04 08:04] LABS: AUTOMATED NEUTROPHIL # 4.4 TH/MM3 (1.8-7.7); BASOPHIL % 0.3 % (0.0-2.0); EOSINOPHIL # 0.3 TH/MM3 (0-0.4); EOSINOPHIL % 4.8 % (0.0-4.0); HEMATOCRIT 39.4 % (35.0-46.0); HEMO FLAGS DIFF FINAL; LYMPHOCYTE # 0.7 TH/MM3 (1.0-4.8); MEAN CELL VOLUME 90.9 FL (80.0-100.0); MEAN CORPUSCULAR HEMOGLOBIN 30.7 PG (27.0-34.0); MEAN CORPUSCULAR HGB CONC 33.8 % (32.0-36.0); MONO % 10.6 % (0.0-8.0); NEUT % 72.3 % (16.0-70.0); PLATELET COUNT 168 TH/MM3 (150-450); RED BLOOD COUNT 4.33 MIL/MM3 (4.00-5.30); RED CELL DISTRIBUTION WIDTH 13.8 % (11.6-17.2)
[2017-03-04] MEDS ORDERED: ENALAPRILAT 1.25 MG/ML VIAL IV PUSH PRN (08:45)
[2017-03-04] MEDS: SODIUM CHLORIDE 0.9% FLUSH 10 ML FLUSH IV FLUSH SCH ×2 (09:22→19:47)
[2017-03-04] MEDS: POLYETHYLENE GLYCOL 17 GM PKG PO SCH (09:23)
[2017-03-04] MEDS: CHOLECALCIFEROL (VIT D3) 5000 UNIT CAP PO SCH (09:23)
[2017-03-04] MEDS: DOCUSATE SODIUM 100 MG CAP PO SCH ×2 (09:23→19:47)
[2017-03-04] MEDS: DULoxetine HCl DR 30 MG CAP PO SCH (09:24)
[2017-03-04] MEDS: LOSARTAN 25 MG TAB PO SCH (09:24)
[2017-03-04] MEDS: DILTIAZEM-CD 120 MG CAP ER PO SCH (09:24)
[2017-03-04] MEDS: ACETAMINOPHEN/HYDROcodone 325 MG/7.5 MG TAB PO PRN ×4 (10:30→23:15)
[2017-03-04] MEDS ORDERED: NYSTATIN 100,000 U/GM OINT 15 GM TUBE TOPICAL PRN (11:15)
--- NOTE | 2017-03-04 11:24 | HHI.PR ---
Subjective Remarks Complaints of constipation and irritation at perineum. No nausea. Pain under control. Objective Vital Signs Date Time Temp Pulse Resp B/P Pulse Ox O2 Delivery O2 Flow Rate FiO2 03/04/17 09:23 Nasal Cannula 2.00 03/04/17 08:00 97.3 92 18 168/96 99 03/04/17 04:05 98.7 95 17 167/79 97 03/04/17 00:42 97.8 88 16 155/76 98 03/03/17 21:00 90 03/03/17 20:05 96.8 92 16 125/68 99 03/03/17 16:51 95.7 85 20 110/62 98 03/03/17 13:07 89 16 135/65 03/03/17 11:55 96.3 83 16 122/77 100 I/O 03/03/17 03/03/17 03/03/17 03/04/17 03/04/17 03/04/17 07:00 15:00 23:00 07:00 15:00 23:00 Intake Total 0 ml 830 ml 240 ml 120 ml Output Total 1525 ml 775 ml 500 ml 900 ml Balance -1525 ml 55 ml -260 ml -780 ml Intake Oral 0 ml 240 ml 240 ml 120 ml IV Total 90 ml Other 500 ml Output Urine Total 1525 ml 700 ml 500 ml 900 ml Estimated Blood Loss 75 ml # Voids 0 1 # Bowel Movements 0 0 0 0 Result Diagram: 03/04/17 0648 03/03/17 1341 Objective Remarks GENERAL: NAD, A&Ox3 HEAD: Normocephalic. NECK: Supple, trachea midline. No lymphadenopathy. EYES: No scleral icterus. No injection or drainage. CARDIOVASCULAR: Regular rate and rhythm without murmurs, gallops, or rubs. RESPIRATORY: Breath sounds equal bilaterally. No accessory muscle use. GASTROINTESTINAL: Abdomen soft, non-tender, nondistended. MUSCULOSKELETAL: No cyanosis, or edema. Dressing at left hip wound. SKIN: Warm and dry. NEURO: No focal neurological deficitis. A/P Problem List: (1) Fracture of femoral neck, left ICD Code: S72.002A Assessment and Plan Assessment and Plan 86-year-old female status post left femoral neck fracture Status post left femoral neck fracture repair Continue pain treatments Orthopedic surgeons following DVT prophylaxis Incentive spirometry Constipation Twice a day Colace When necessary milk of magnesia Follow for bowel movement History of hypothyroidism TSH within normal limits Hypertension continue losartan Follow BP Coronary artery disease History of coronary stent No chest pain Atrial fibrillation Continue Cartia Will restart Eliquis when bleeding risk decreases Chronic pain Cymbalta continued DVT prophylaxis SCDs Lovenox Discharge Planning Plan for correction facility Problem Qualifiers (1) Fracture of femoral neck, left: Qualified Code: S72.002A - Closed fracture of neck of left femur, initial encounter Sixto Thacker MD Mar 04, 2017 11:24
[2017-03-04] MEDS ORDERED: FLUCONAZOLE 400 MG PREMIX BAG 200 ML IV ONE (12:00)
--- NOTE | 2017-03-04 14:10 | PD.WCN.NOT ---
Wound Consult Description: Coccyx stage 2 pressure injury Communicated with: RN Bernie sullivan and Doctor Kedar Recommendation: Please cleanse coccyx wound with normal saline and apply small adhesive foam dressing. Please change every 3 days or PRN if saturated or dislodged . Please apply skin prep to periwound before applying dressing. Additional Information: Patient seen on for evaluation of pressure injury to sacral area. Patient able to stand with minimal assist from assembly instructions writer and walker for assessment. Removed adhesive foam dressing in place to reveal small wound over coccyx, measuring ~0.2 cm x ~0.2cm x ~<0.1cm. Periwound noted with blanchable erythema. Wound is 100% pink and partial thickness, with dry wound bed. Wound appears to be a resolving stage 2 pressure injury. Cleansed wound with normal saline and applied skin prep to periwound before applying Allevyn gentle border dressing in place. Ostomy Date of Surgery: Mar 03, 2017 Sarina Barrett [facility] Mar 04, 2017 14:10
[2017-03-04] MEDS: MAGNESIUM HYDROXIDE SUSP 30 ML CUP PO PRN (19:47)
[2017-03-04] MEDS ORDERED: ENOXAPARIN SODIUM 30 MG/0.3 ML SYRINGE SQ SCH (22:00)
[2017-03-05 00:35] VITALS: BP 152/78; PULSE 80; RESP 16; TEMP 97.1; O2SAT 99
[2017-03-05 04:21] VITALS: BP 135/76; PULSE 82; RESP 16; TEMP 97.7; O2SAT 97
[2017-03-05] MEDS: ACETAMINOPHEN/HYDROcodone 325 MG/7.5 MG TAB PO PRN ×2 (06:20→13:12)
[2017-03-05] MEDS: SUCRALFATE 1 GM TAB PO SCH ×2 (06:20→16:04)
[2017-03-05 07:00] LABS: POTASSIUM 3.7 MEQ/L (3.5-5.1)
--- NOTE | 2017-03-05 07:18 | PD.ORT.PN ---
Subjective Subjective Remarks POD 2 s/p PCP left hip doing well. reports heel pain from sitting on bed. Objective Vitals Vital Signs Date Time Temp Pulse Resp B/P Pulse Ox O2 Delivery O2 Flow Rate FiO2 03/05/17 04:21 97.7 82 16 135/76 97 03/05/17 00:35 97.1 80 16 152/78 99 03/04/17 20:47 78 03/04/17 20:35 97.0 78 16 131/80 98 03/04/17 16:00 98.1 82 18 138/80 97 03/04/17 12:00 97.9 91 18 137/81 97 03/04/17 09:23 Nasal Cannula 2.00 03/04/17 08:20 80 03/04/17 08:00 97.3 92 18 168/96 99 I/O 03/04/17 03/04/17 03/04/17 03/05/17 03/05/17 03/05/17 07:00 15:00 23:00 07:00 15:00 23:00 Intake Total 120 ml 180 ml 120 ml 240 ml Output Total 900 ml Balance -780 ml 180 ml 120 ml 240 ml Intake Oral 120 ml 180 ml 120 ml 240 ml Output Urine Total 900 ml # Voids 1 3 2 3 # Bowel Movements 0 0 0 Result Diagram: 03/04/17 0648 03/05/17 0538 Imaging Last 72 hours Impressions Lumbar Spine X-Ray 03/03/17 0000 Signed Impressions: Service Date/Time: Friday, March 03, 2017 11:22 - CONCLUSION: 1. Mild compression deformities involving L1, L2 and L3 of indeterminate ages. 2. Degenerative changes and scoliosis of the thoracolumbar spine. Daquan Reed MD Hip X-Ray 03/03/17 0000 Signed Impressions: Service Date/Time: Friday, March 03, 2017 08:44 - CONCLUSION: 1. Status post ORIF of left proximal femur fracture with three screws which appear to be in good position. 2. Degenerative changes involving the left hip joint. Daquan Reed MD Head CT 03/03/17 0000 Signed Impressions: Service Date/Time: Friday, March 03, 2017 10:56 - CONCLUSION: Negative for acute traumatic injury Marc Beth MD FACR Hip and Pelvis X-Ray 7/25/17 1846 Signed Impressions: Service Date/Time: Thursday, March 02, 2017 19:27 - CONCLUSION: Subcapital left femoral neck fracture. Peyman James MD Chest X-Ray 03/02/171845 Signed Impressions: Service Date/Time: Thursday, March 02, 2017 19:39 - CONCLUSION: 1. Cardiomegaly. 2. Retrocardiac density likely hiatal hernia. Peyman James MD Ankle X-Ray 03/02/171845 Signed Impressions: Service Date/Time: Thursday, March 02, 2017 19:35 - CONCLUSION: 1. No fracture. 2. Soft tissue swelling. 3. Pes planus. 4. Arthropathy talocalcaneal joints. Peyman James MD Last 24 hours Impressions Hip and Pelvis X-Ray 03/02/171845 Signed Impressions: Service Date/Time: Thursday, March 02, 2017 19:27 - CONCLUSION: Subcapital left femoral neck fracture. Peyman James MD Chest X-Ray 03/02/171845 Signed Impressions: Service Date/Time: Thursday, March 02, 2017 19:39 - CONCLUSION: 1. Cardiomegaly. 2. Retrocardiac density likely hiatal hernia. Peyman James MD Ankle X-Ray 03/02/171845 Signed Impressions: Service Date/Time: Thursday, March 02, 2017 19:35 - CONCLUSION: 1. No fracture. 2. Soft tissue swelling. 3. Pes planus. 4. Arthropathy talocalcaneal joints. Peyman James MD Objective Remarks Left lower extremity: Clean dry dressings intact. Distally neurovascularly intact. Strong dorsiflexion plantar flexion foot Assessment & Plan Assessment and Plan 1) Left Femoral Neck Fx PCP POD 2 Physical therapytoe-touch weightbearing left lower extremity Daily dressing changes beginning POD 2 with Xeroform and Primapore Lovenox Physical therapy to also work with bedside commode X-rays are negative for any new compression fractures. Has significant degenerative changes to her lumbar spine Case management for rehabilitation placement ortho cleared for DC to rehab elevate heels to avoid pressure ulcer Follow-up Dr. Marie or [place] in 2 weeks Aldo Khan Mar 05, 2017 07:18
[2017-03-05 08:00] VITALS: BP 135/77; PULSE 72; PULSE 76; RESP 16; TEMP 97; O2SAT 96
[2017-03-05] MEDS: DOCUSATE SODIUM 100 MG CAP PO SCH (08:58)
[2017-03-05] MEDS: LOSARTAN 25 MG TAB PO SCH (08:58)
[2017-03-05] MEDS: SODIUM CHLORIDE 0.9% FLUSH 10 ML FLUSH IV FLUSH SCH (08:58)
[2017-03-05] MEDS: MAGNESIUM HYDROXIDE SUSP 30 ML CUP PO PRN (08:58)
[2017-03-05] MEDS: CHOLECALCIFEROL (VIT D3) 5000 UNIT CAP PO SCH (08:59)
[2017-03-05] MEDS: DILTIAZEM-CD 120 MG CAP ER PO SCH (08:59)
[2017-03-05] MEDS: DULoxetine HCl DR 30 MG CAP PO SCH (08:59)
[2017-03-05] MEDS ORDERED: MAGN400S PO (10:42)
[2017-03-05] MEDS ORDERED: DOCU1CAP39 PO (10:42)
[2017-03-05] MEDS ORDERED: NYST100084 TOPICAL (10:42)
[2017-03-05] MEDS ORDERED: ENOX30P SQ (10:42)
--- NOTE | 2017-03-05 10:49 | HHI.DS ---
Discharge Summary Admission Date Mar 02, 2017 at 8:45 pm Discharge Date: Mar 05, 2017 Admitting Diagnosis fracture left femoral neck. Patient's on anticoagulation. (1) Fracture of femoral neck, left ICD Code: S72.002A Diagnosis: Principal Procedures Percutaneous pinning left thigh Brief History - From Admission Written by Farhana Miranda, acting as scribe for Dr. Mcfarland on 03/03/17 at 04:24. The patient states that she fell on Wednesday and has had progressively worsening pain. She was at her grandson's house, turned around, didn't see ottoman, and tripped over an ottoman that she did not see Reports weight loss over the past year or so Hit her head during fall Grandson helped her back up Reports generalized weakness Denies fever, n/v/d, black or red stool, hematuria, chest pain, shortness of breath Reports some dysuria, frequent urination, a little bit of dizziness, fatigue CBC/BMP: 03/04/17 0648 03/05/17 0538 Significant Findings Laboratory Tests Test 03/02/17 03/02/17 03/03/17 03/03/17 19:00 19:10 13:41 14:34 Urine Glucose (UA) 100 mg/dL (NEG) Urine RBC 4-9 /hpf (0-3) Urine Calcium Oxalate Crystals FEW /hpf (NONE) Monocytes (%) (Auto) 8.9 % (0.0-8.0) Eosinophils (%) (Auto) 5.0 % (0.0-4.0) Lymphocytes # (Auto) 0.9 TH/MM3 (1.0-4.8) Activated Partial 38.5 SEC Thromboplast Time (24.3-30.1) Blood Urea Nitrogen 20 MG/DL (7-18) Estimat Glomerular Filtration 88 ML/MIN (>89) Rate Total Protein 6.2 GM/DL (6.4-8.2) Albumin 3.0 GM/DL (3.4-5.0) Potassium Level 3.3 MEQ/L (3.5-5.1) 25-Hydroxy Vitamin D Total 123.0 ng/ML (30-100) Test 03/04/17 03/05/17 06:48 05:38 Neutrophils (%) (Auto) 72.3 % (16.0-70.0) Monocytes (%) (Auto) 10.6 % (0.0-8.0) Eosinophils (%) (Auto) 4.8 % (0.0-4.0) Lymphocytes # (Auto) 0.7 TH/MM3 (1.0-4.8) Creatinine 0.48 MG/DL (0.50-1.00) PE at Discharge GENERAL: NAD, A&Ox3 HEAD: Normocephalic. NECK: Supple, trachea midline. No lymphadenopathy. EYES: No scleral icterus. No injection or drainage. CARDIOVASCULAR: Regular rate and rhythm without murmurs, gallops, or rubs. RESPIRATORY: Breath sounds equal bilaterally. No accessory muscle use. GASTROINTESTINAL: Abdomen soft, non-tender, nondistended. MUSCULOSKELETAL: No cyanosis, or edema. Limited range of motion left leg. Left leg wound bandage. SKIN: Warm and dry. NEURO: No focal neurological deficitis. Hospital Course Mrs. Mitchell is an 86 old female. She was noted secondary to fracture of left femoral neck. This was surgically repaired. Problems while inpatient have been hypokalemia and hypertension. Both of these are under control. She has not yet had a bowel movement but does not have urgency as of yet. Plan is to discharge to an inpatient rehabilitation facility. She is medically stable for discharge today. Pt Condition on Discharge: Stable Discharge Disposition: Rehab Inpatient Discharge Time: > 30 minutes Discharge Instructions DIET: Follow Instructions for: As Tolerated, No Restrictions Activities you can perform: Regular-No Restrictions Follow up Referrals: Orthopedics - 03/18/17 @ [facility] with Chi Monroe MD PCP Follow-up - 4 Weeks New Medications: Calcium Carbonate-Vitamin D (Calcium 600+D 200) 600-200 Mg-Unit Tab 1 TAB PO BID Nutritional Supplement #90 Ref 0 TAB Ergocalciferol (Ergocalciferol) 50,000 Unit Cap 33494 UNITS PO Q7D Nutritional Supplement #8 CAP Hydrocodone-Acetaminophen (Hydrocodone-Acetaminophen) 7.5-325 mg Tab 1 TAB PO Q4H PRN PAIN #60 Ref 0 TAB Walker/Adult/Folding (Walker/Adult/Folding) 1 Mis Mis 1 EA .ROUTE DIRECTED #1 Ref 0 EA Docusate Sodium (Dok) 100 Mg Cap 100 MG PO BID Constipation #60 CAP Enoxaparin Inj (Lovenox Inj) 30 Mg/0.3 Ml Syr 30 MG SQ Q24H Blood Clot Prevention #30 INJECTION Magnesium Hydroxide (Eq Milk of Magnesia) 1,200 Mg/15 Ml Ayesha 30 ML PO DAILY PRN Constipation #30 BOTTLE Nystatin Topical (Nystatin Topical) 100,000 unit/gm Oint 1 APPLIC TOPICAL Q12H PRN Perinium Irritation/rash #10 TUBE Continued Medications: Diltiazem ER 24 HR (Cartia Xt) 120 Mg Caper 120 MG PO DAILY #[address] (Cymbalta DR) 30 Mg Capdr 30 MG PO DIRECTED #30 Ref 0 CAP Losartan (Losartan) 25 Mg Tab 12.5 MG PO DAILY Blood Pressure Management #15 Ref 0 TAB Sucralfate (Sucralfate) 1 Gm Tab 1 GM PO Q12HR on empty stomach Duodenal ulcer #120 Ref 0 TAB Discontinued Medications: Apixaban (Eliquis) 2.5 Mg Tab 2.5 MG PO BID Blood Clot Prevention Ref 0 TAB Tramadol (Tramadol) 50 Mg Tab 50 MG PO Q6H PRN PAIN Ref 0 TAB Sixto Thacker MD Mar 05, 2017 10:49 am
[2017-03-05 12:05] VITALS: BP 127/78; PULSE 72; RESP 16; TEMP 96.1; O2SAT 95
== END 2017-03-05 16:14 | DRG 482 ==
LOC: PHED 17:21 → PHEDA 20:45 → N06B 03-03 03:56
PROVIDERS: ADMIT Hospitalist; ATTEND Hospitalist
PROC: 0T9B70Z Drainage of Bladder with Drainage Device, Via Natural or Artificial Opening (ICD-10-PCS; 2017-03-02)
PROC: 0QS734Z Reposition Left Upper Femur with Internal Fixation Device, Percutaneous Approach (ICD-10-PCS; principal; 2017-03-03 07:57)
DX: S72.002A Fracture of unspecified part of neck of left femur, initial encounter for closed fracture (principal); I48.91 Unspecified atrial fibrillation; I10 Essential (primary) hypertension; W19.XXXA Unspecified fall, initial encounter; Z79.02 Long term (current) use of antithrombotics/antiplatelets; F32.9 Major depressive disorder, single episode, unspecified; I25.10 Atherosclerotic heart disease of native coronary artery without angina pectoris; Z95.5 Presence of coronary angioplasty implant and graft; G89.29 Other chronic pain; M54.5 Low back pain; Z82.49 Family history of ischemic heart disease and other diseases of the circulatory system; Z80.9 Family history of malignant neoplasm, unspecified; E03.9 Hypothyroidism, unspecified; M81.0 Age-related osteoporosis without current pathological fracture; K59.00 Constipation, unspecified; E87.6 Hypokalemia
CPT/HCPCS: 70450; 71010; 72100; 73502; 73610; 76000; 80048; 80053; 81001; 82306; 84443; 85025; 85610; 85730; 86850; 86900; 86901; 93005; C1713; C1769; J0131; J0690; J1170; J1450; J1580; J1650; J2270; J2370; J2405; J3010; J3370; J7030

== ENCOUNTER 2017-08-02 11:56 | Inpatient (IN) | payer MEDICARE, OTHER ==
[~2017-08-02] VITALS: Ht 147.3 cm; Wt 41.5 kg
[~2017-08-02 11:56] MED LIST changes: +APIX2.5T PO; +CALCTAB19 PO; +CART120C PO; +CIPR-9 PO; +COZA25TA PO; +CYMB30CA PO; -DIOV40TA PO; +DOCU1CAP39 PO; -DULO20 PO; +HYDR-3580 PO; +MAGN400S PO; +POTA20TA5 PO; -PRAD75CA PO; +SUCR1TAB PO; +VITA500012 PO; +WALKER/ADULT/FO1 MIS
[2017-08-02 11:58] VITALS: BP 132/75; PULSE 87; RESP 16; TEMP 97.4; O2SAT 97
[2017-08-02] MEDS ORDERED: traMADol HCL 50 MG TAB PO ONE (12:30)
--- NOTE | 2017-08-02 12:35 | PD ---
HPI Chief Complaint: Hip Injury Time Seen by Provider: 12:02 Travel History International Travel<30 days: No Contact w/Intl Traveler<30days: No Traveled to known affect area: No History of Present Illness HPI Patient 87-year-old female had a slip and fall today, landing on her left hip, does not recall hitting her head has a small bruise on the left side of her head. She is on blood thinners. Denies any loss consciousness chest pain shortness of breath abdominal pain nausea vomiting. Event happened just prior to arrival, left hip, context as above, associated signs symptoms as above. PFSH Past Medical History Hx Anticoagulant Therapy: Yes (ELIQUIS) Arthritis: Yes Asthma: No Atrial Fibrillation: Yes Autoimmune Disease: No Anxiety: No Depression: Yes Heart Rhythm Problems: Yes (Afib) Cancer: No Cardiovascular Problems: Yes ("Leaky valve"; AFIB) High Cholesterol: No Chemotherapy: No Chest Pain: No Congestive Heart Failure: No COPD: No Cerebrovascular Accident: No Diabetes: No Endocrine: No Gastrointestinal Disorders: Yes GERD: Yes Genitourinary: No Hiatal Hernia: Yes Hypertension: Yes Immune Disorder: No Kidney Stones: No Musculoskeletal: Yes Neurologic: No Psychiatric: Yes Reproductive: No Respiratory: No Migraines: No Radiation Therapy: No Renal Failure: No Seizures: No Sickle Cell Disease: No Sleep Apnea: No Thyroid Disease: No Ulcer: No Past Surgical History Abdominal Surgery: Yes (APPENDECTOMY) AICD: No Appendectomy: Yes Arteriovenous Shunt: No Cardiac Surgery: Yes (Cardiac stent ) Ear Surgery: No Endocrine Surgery: No Eye Surgery: Yes (Right Retinal Procedures, Cataract removal) Genitourinary Surgery: No Gynecologic Surgery: Yes (HYSTERECTOMY) Hysterectomy: Yes Insulin Pump: No Joint Replacement: No Oral Surgery: No Pacemaker: No Other Surgery: Yes Social History Alcohol Use: No Tobacco Use: No Substance Use: No Allergies-Medications (Allergen,Severity, Reaction): Coded Allergies: meperidine (Unverified Allergy, Severe, Wheezing, 08/02/17) penicillin G (Unverified Allergy, Severe, Hives, 08/02/17) aspirin (Unverified Allergy, Intermediate, MED INTERACTION, 08/02/17) Reported Meds & Prescriptions Reported Meds & Active Scripts Active Keflex (Cephalexin) 500 Mg Cap 500 Mg PO Q6H 5 Days Ultram (Tramadol HCl) 50 Mg Tab 50 Mg PO Q6H PRN Potassium Chloride Microencaps 20 Meq Tab 20 Meq PO DAILY 7 Days Cozaar (Losartan Potassium) 25 Mg Tab 25 Mg PO DAILY@10 30 Days Eliquis (Apixaban) 2.5 Mg Tab 2.5 Mg PO BID 30 Days Eq Milk of Magnesia (Magnesium Hydroxide) 1,200 Mg/15 Ml Ayehsa 30 Ml PO DAILY PRN Dok (Docusate Sodium) 100 Mg Cap 100 Mg PO BID Calcium 600+D 200 (Calcium Carbonate-Vitamin D) 600-200 Mg-Unit Tab 1 Tab PO BID Hydrocodone-Acetaminophen 7.5-325 mg Tab 1 Tab PO Q4H PRN Sucralfate 1 Gm Tab 1 Gm PO Q12HR on empty stomach Cartia Xt (Diltiazem ER 24 HR) 120 Mg Caper 120 Mg PO DAILY Cymbalta DR (Duloxetine HCl) 30 Mg Capdr 30 Mg PO DIRECTED Walker/Adult/Folding (Device) 1 Mis Mis 1 Ea .ROUTE DIRECTED Review of Systems Except as stated in HPI: all other systems reviewed are Neg Physical Exam Narrative GENERAL: Well-developed well-nourished, no obvious distress SKIN: Focused skin assessment warm/dry. HEAD: Small bruise over the left eyebrow, no mauro signs no raccoons eyes.. Normocephalic. EYES: Pupils equal and round. No scleral icterus. No injection or drainage. ENT: No nasal bleeding or discharge. Mucous membranes pink and moist. NECK: Trachea midline. No JVD. CARDIOVASCULAR: Regular rate and rhythm. No murmur appreciated. RESPIRATORY: No accessory muscle use. Clear to auscultation. Breath sounds equal bilaterally. GASTROINTESTINAL: Abdomen soft, non-tender, nondistended. Hepatic and splenic margins not palpable. MUSCULOSKELETAL: No obvious deformities. No clubbing. No cyanosis. No edema. No tenderness on the left hip, there is some tenderness on internal and external rotation, no knee tenderness, no pelvis tenderness. CT or L-spine tenderness. 5 out of 5 strength in bilateral lower extremities. NEUROLOGICAL: Awake and alert. No obvious cranial nerve deficits. Motor grossly within normal limits. Normal speech. PSYCHIATRIC: Appropriate mood and affect; insight and judgment normal. Data Data Last Documented VS Vital Signs Date Time Temp Pulse Resp B/P (MAP) Pulse Ox O2 Delivery O2 Flow Rate FiO2 08/02/17 16:20 90 178/88 (118) 97 Room Air 08/02/17 11:58 97.[address] Brain W/O Iv Contrast(Rout) (08/02/17 ) Ct Cerv Spine W/O Contrast (08/02/17 ) Ct Hip W/O Contrast (08/02/17 ) Urinalysis - C+S If Indicated (08/02/17 12:24) Tramadol (Ultram) (08/02/17 12:30) Urine Culture (08/02/17 12:40) Electrocardiogram (08/02/17 15:25) Basic Metabolic Panel (Bmp) (08/02/17 15:25) Complete Blood Count With Diff (08/02/17 15:25) Magnesium (Mg) (08/02/17 15:25) Prothrombin Time / Inr (Pt) (08/02/17 15:25) Act Partial Throm Time (Ptt) (08/02/17 15:25) Troponin I (08/02/17 15:25) Chest, Single Ap (08/02/17 15:25) Ecg Monitoring (08/02/17 15:25) Iv Access Insert/Monitor (08/02/17 15:25) Oximetry (08/02/17 15:25) Oxygen Administration (08/02/17 15:25) Sodium Chloride 0.9% Flush (Ns Flush) (08/02/17 15:30) Admit Order (Ed Use Only) (08/02/17 ) Labs Laboratory Tests Test 08/02/17 12:40 08/02/17 15:45 Urine Color YELLOW Urine Turbidity HAZY Urine pH 6.5 Urine Specific [place] 1.016 Urine Protein TRACE mg/dL Urine Glucose (UA) NEG mg/dL Urine Ketones NEG mg/dL Urine Occult Blood MOD Urine Nitrite NEG Urine Bilirubin NEG Urine Urobilinogen LESS THAN 2.0 MG/DL Urine Leukocyte Esterase NEG Urine RBC 88 /hpf Urine WBC 6 /hpf Urine Squamous Epithelial Cells <1 /hpf Urine Amorphous Sediment MOD Urine Bacteria OCC /hpf Urine Mucus FEW /lpf Microscopic Urinalysis Comment CATH-CULTURE IND White Blood Count 7.5 TH/MM3 Red Blood Count 4.33 MIL/MM3 Hemoglobin 13.3 GM/DL Hematocrit 40.0 % Mean Corpuscular Volume 92.5 FL Mean Corpuscular Hemoglobin 30.8 PG Mean Corpuscular Hemoglobin Concent 33.3 % Red Cell Distribution Width 13.9 % Platelet Count 208 TH/MM3 Mean Platelet Volume 9.1 FL Neutrophils (%) (Auto) 78.4 % Lymphocytes (%) (Auto) 13.3 % Monocytes (%) (Auto) 6.4 % Eosinophils (%) (Auto) 1.5 % Basophils (%) (Auto) 0.4 % Neutrophils # (Auto) 5.8 TH/MM3 Lymphocytes # (Auto) 1.0 TH/MM3 Monocytes # (Auto) 0.5 TH/MM3 Eosinophils # (Auto) 0.1 TH/MM3 Basophils # (Auto) 0.0 TH/MM3 CBC Comment DIFF FINAL Differential Comment Prothrombin Time 11.2 SEC Prothromb Time International Ratio 1.1 RATIO Activated Partial Thromboplast Time 27.1 SEC Blood Urea Nitrogen 20 MG/DL Creatinine 0.62 MG/DL Random Glucose 96 MG/DL Calcium Level 9.0 MG/DL Magnesium Level 2.0 MG/DL Sodium Level 141 MEQ/L Potassium Level 3.1 MEQ/L Chloride Level 103 MEQ/L Carbon Dioxide Level 34.4 MEQ/L Anion Gap 4 MEQ/L Estimat Glomerular Filtration Rate 91 ML/MIN Troponin I LESS THAN 0.02 NG/ML MDM Medical Decision Making Medical Screen Exam Complete: Yes Emergency Medical Condition: Yes Differential Diagnosis Hip fracture, head injury, neck injury. Narrative Course Patient roomed emergency department, unable to ambulate despite negative CT examinations. Discussed with medicine for admission and further workup. Diagnosis Primary Impression: Hip pain, left Additional Impression: Hematuria Admitting Information Admitting Physician Requests: Observation Med/Other Pt SpecificInfo: Prescription(s) given Scripts Cephalexin (Keflex) 500 Mg Cap 500 MG PO Q6H for Infection for 5 Days, #20 CAP 0 Refills Prov: Daquan Barillas MD 08/02/17 Tramadol (Ultram) 50 Mg Tab 50 MG PO Q6H Y for PAIN, #10 TAB 0 Refills Prov: Daquan Barillas MD 08/02/17 Disposition: 01 DISCHARGE HOME Condition: Stable Daquan Barillas MD Aug 02, 2017 12:35
[2017-08-02 12:52] LABS: AMORPHOUS SEDIMENT, URINE MOD; BACTERIA, URINE OCC /hpf; BILIRUBIN, URINE NEG (NEG); BLOOD, URINE MOD (NEG); GLUCOSE,URINE NEG (NEG); KETONE, URINE NEG (NEG); MUCUS URINE FEW /lpf (OCC); NITRITE,URINE NEG (NEG); PH, URINE 6.5 (5.0-8.5); SQUAMOUS EPITHELIAL CELL URINE <1 /hpf (0-5); URINE COLOR YELLOW (YELLW/STRAW); URINE LEUKOCYTE ESTERASE NEG (NEG)
--- NOTE | 2017-08-02 14:02 | RADRPT ---
EXAM DATE/TIME: 08/02/2017 13:24 [facility] COMPARISON: CT BRAIN W/O CONTRAST, March 03, 2017, 10:56. INDICATIONS : Trauma, fall today. RADIATION DOSE: 56.35 CTDIvol (mGy) MEDICAL HISTORY : Hypertension. SURGICAL HISTORY : None. ENCOUNTER: Initial ACUITY: 1 day PAIN SCALE: 0/10 LOCATION: cranial TECHNIQUE: Multiple contiguous axial images were obtained of the head. Using automated exposure control and adj ustment of the mA and/or kV according to patient size, radiation dose was kept as low as reasonably a chievable to obtain optimal diagnostic quality images. DICOM format image data is available electro nically for review and comparison. FINDINGS: CEREBRUM: The ventricles are normal for age. No evidence of midline shift, mass lesion, hemorrhage or acute in farction. Moderate periventricular white matter changes. No extra-axial fluid collections are seen. POSTERIOR FOSSA: The cerebellum and brainstem are intact. The 4th ventricle is midline. The cerebellopontine angle i s unremarkable. EXTRACRANIAL: The visualized portion of the orbits is intact. SKULL: The calvaria is intact. No evidence of skull fracture. CONCLUSION: Negative for acute traumatic event. Moderate periventricular white matter changes. Marc Beth MD FACR on August 02, 2017 at 14:00 Board Certified Radiologist. This report was verified electronically.
--- NOTE | 2017-08-02 14:03 | RADRPT ---
EXAM DATE/TIME: 08/02/2017 13:29 [facility] COMPARISON: No previous studies available for comparison. INDICATIONS : Trauma, fall. Left hip pain. RADIATION DOSE: 15.09 CTDIvol (mGy) MEDICAL HISTORY : None SURGICAL HISTORY : Left hip screws ENCOUNTER: Initial ACUITY: 1 day PAIN SCALE: 10/10 LOCATION: Left hip. TECHNIQUE: Volumetric scanning of the hip was performed. Using automated exposure control and adjustment of the mA and/or kV according to patient size, radiation dose was kept as low as reasonably achievable to o btain optimal diagnostic quality images. DICOM format image data is available electronically for rev iew and comparison. FINDINGS: The bones are osteopenic with degenerative changes in lumbar spine. Previous pitting is present on t he left. Alignment anatomic. Displaced fracture is not appreciated. The left hemipelvis is intact. CONCLUSION: Negative for acute fracture. Marc Beth MD FACR on August 02, 2017 at 14:00 Board Certified Radiologist. This report was verified electronically.
--- NOTE | 2017-08-02 14:19 | RADRPT ---
EXAM DATE/TIME: 08/02/2017 13:27 [facility] COMPARISON: No previous studies available for comparison. INDICATIONS : Trauma fall. RADIATION DOSE: 37.93 CTDIvol (mGy) MEDICAL HISTORY : None SURGICAL HISTORY : None. ENCOUNTER: Initial ACUITY: 1 day PAIN SCALE: 0/10 LOCATION: neck TECHNIQUE: Volumetric scanning of the cervical spine was performed. Multiplanar reconstructions in the sagittal, coronal and oblique axial planes were performed. Using automated exposure control and adjustment o f the mA and/or kV according to patient size, radiation dose was kept as low as reasonably achievable to obtain optimal diagnostic quality images. DICOM format image data is available electronically f or review and comparison. FINDINGS: VERTEBRAE: Aortogram changes throughout the cervical spine. ALIGNMENT: No evidence of subluxation. Degenerative changes are seen from skull base to C2. C2-C3: Moderate uncinate ridging is present with minimal right neuroforamina encroachment. C3-C4: Sonographic imaging is present to cause moderate spinal stenosis with the significant right-sided suzy ral foramen encroachment. C4-C5: Moderate hemorrhage is present with right centimeter from encroachment. Spondylosis is mild C5-C6: Degenerative changes are seen in the facets. Small bilateral from. C6-C7: Moderate bilateral neural foramina encroachment is present. C7-T1: The bony spinal canal is normal in size. No evidence of disc bulge or herniation. The neural forami na are bilaterally patent. CONCLUSION: Extensive degenerative changes in fracture. Stenosis is significant at C3-C4. Marc Beth MD FACR on August 02, 2017 at 14:15 Board Certified Radiologist. This report was verified electronically.
[2017-08-02] MEDS ORDERED: TRAM50 PO (15:08)
[2017-08-02] MEDS ORDERED: CEPH-460 PO (15:10)
[2017-08-02 15:45] VITALS: O2SAT 96
[2017-08-02 16:02] LABS: AUTOMATED NEUTROPHIL # 5.8 TH/MM3 (1.8-7.7); BASOPHIL % 0.4 % (0.0-2.0); EOSINOPHIL # 0.1 TH/MM3 (0-0.4); EOSINOPHIL % 1.5 % (0.0-4.0); HEMOGLOBIN 13.3 GM/DL (11.6-15.3); LYMPH % 13.3 % (9.0-44.0); MEAN CELL VOLUME 92.5 FL (80.0-100.0); MEAN CORPUSCULAR HEMOGLOBIN 30.8 PG (27.0-34.0); MEAN CORPUSCULAR HGB CONC 33.3 % (32.0-36.0); MEAN PLATELET VOLUME 9.1 FL (7.0-11.0); MONO % 6.4 % (0.0-8.0); MONOCYTE # 0.5 TH/MM3 (0-0.9); NEUT % 78.4 % (16.0-70.0); PLATELET COUNT 208 TH/MM3 (150-450); RED BLOOD COUNT 4.33 MIL/MM3 (4.00-5.30); RED CELL DISTRIBUTION WIDTH 13.9 % (11.6-17.2); WHITE BLOOD COUNT 7.5 TH/MM3 (4.0-11.0)
--- NOTE | 2017-08-02 16:02 | RADRPT ---
EXAM DATE/TIME: 08/02/2017 15:37 [facility] COMPARISON: CHEST SINGLE AP, March 02, 2017, 19:39. INDICATIONS : Short of breath. MEDICAL HISTORY : None. SURGICAL HISTORY : None. ENCOUNTER: Initial ACUITY: 1 day PAIN SCORE: 0/10 LOCATION: Bilateral chest FINDINGS: Single AP view of the chest. The lungs are clear. Cardiac silhouette mildly enlarged but unchanged. N o evidence of pleural effusion or pneumothorax. CONCLUSION: No acute cardiopulmonary disease identified. Gamal Lama MD on August 02, 2017 at 16:00 Board Certified Radiologist. This report was verified electronically.
[2017-08-02 16:12] LABS: INTERNATIONAL NORMALIZED RATIO 1.1 RATIO; PROTHROMBIN TIME - PATIENT 11.2 SEC (9.8-11.6)
[2017-08-02 16:20] VITALS: BP 178/88; PULSE 90; O2SAT 97
[2017-08-02 16:23] LABS: BICARBONATE 34.4 MEQ/L (21.0-32.0); BLOOD UREA NITROGEN 20 MG/DL (7-18); CHLORIDE 103 MEQ/L (98-107); CREATININE 0.62 MG/DL (0.50-1.00); GLOMERULAR FILTRATION RATE 91 ML/MIN (>89); GLUCOSE,RANDOM 96 MG/DL (74-106); SODIUM (NA) 141 MEQ/L (136-145)
[2017-08-02 16:26] LABS: TROPONIN I LESS THAN 0.02 NG/ML (0.02-0.05)
[2017-08-02] MEDS ORDERED: ACETAMINOPHEN/HYDROcodone 325 MG/7.5 MG TAB PO PRN (17:30)
--- NOTE | 2017-08-02 17:39 | HHI.HP ---
[facility] Tone Valencia M.D. Admission Diagnosis Hip pain, Inability to ambulate. Diagnoses: Chief Complaint: left hip pain Travel History International Travel<30 Days: No Contact w/Intl Traveler <30 Da: No Traveled to Known Affected Are: No History of Present Illness 87-year-old white female who is being admitted for observation secondary to being unable to bear weight on left leg after fall. Patient was in her usual state of health until earlier today when she bent down to continuous pickling line pickler one of her grandchildren and in the process lost her footing and fell sideways onto her left side. She did strike her head on the ground but denies any loss of consciousness. She denies experiencing any CP or SOB surrounding the incident. 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 But today she was not using it normal she holding onto anything in particular for balance as she bent down to continuous pickling line pickler her grandchild. Patient is repetitively stating that she should have been exercising much more on a daily basis at which point she admits to being quite sedentary most of her days. Patient denies having any bowel or bladder incontinence issues since the fall. Pt did have a L hip fx repair 6 months ago. Review of Systems Except as stated in HPI: all other systems reviewed are Neg Past Family Social History Past Medical History Atrial fibrillation CAD Arthritis Past Surgical History Left hip fx surgery APPENDECTOMY Cardiac stent Right Retinal Procedures, Cataract removal HYSTERECTOMY Allergies: Coded Allergies: meperidine (Unverified Allergy, Severe, Wheezing, 08/02/17) penicillin G (Unverified Allergy, Severe, Hives, 08/02/17) aspirin (Unverified Allergy, Intermediate, MED INTERACTION, 08/02/17) Family History Patient denies any family history of hip fractures Social History Patient lives with her daughter, denies ever smoking Physical Exam Vital Signs Vital Signs Date Time Temp Pulse Resp B/P (MAP) Pulse Ox O2 Delivery O2 Flow Rate FiO2 08/02/17 15:45 96 Room Air 08/02/17 15:45 96 Room Air 08/02/17 11:58 97.4 87 16 132/75 (94) 97 Physical Exam VS: afebrile GENERAL: Elderly thin, frail appearing white female, lying in bed, no acute distress; patient becomes in mild to moderate distress when trying to stand up upon prompting SKIN: Warm and dry. EYES: No scleral icterus. No injection or drainage. ENT: No nasal bleeding or discharge. Mucous membranes pink and moist. CARDIOVASCULAR: Heart rate is regular. Rhythm is irregular RESPIRATORY: No accessory muscle use. Clear to auscultation. Breath sounds equal bilaterally. GASTROINTESTINAL: Abdomen soft, non-tender, nondistended. Extremities: No clubbing, cyanosis, or edema. MUSCULOSKELETAL: Patient has 3 out of 5 strength throughout proximal upper and lower extremities except for her left lower extremity which I think she is holding back but she demonstrates a 2 out of 5 on her hip flexion. There is some tenderness to palpation over the proximal medial thigh of the left leg as well as the lateral proximal aspect. There is no obvious bruising noted. In a supine position patient actively is essentially unable to perform straight leg raising of the left leg. She can actively flex her left hip with the knee flexed; she can tolerate passively internally rotating her left hip but she does vocalize having substantial pain upon external rotation. No passive or active ROM abnormalities noted with the right hip. Patient is able to transfer herself with some assistance into a standing position but is unable to ambulate ; is essentially unable to lift up her right leg due to the intense pain that is triggered on her left leg in doing so. Has a deformed left foot that appears outwards rotated with a high arch which pt states is chronic NEUROLOGICAL: Awake and alert. No obvious cranial nerve deficits. No facial droop nor slurred speech noted. PSYCHIATRIC: Appropriate mood and affect; insight and judgment normal. Laboratory Laboratory Tests Test 08/02/17 12:40 08/02/17 15:45 Urine Color YELLOW Urine Turbidity HAZY Urine pH 6.5 Urine Specific Drummond 1.016 Urine Protein TRACE Urine Glucose (UA) NEG Urine Ketones NEG Urine Occult Blood MOD Urine Nitrite NEG Urine Bilirubin NEG Urine Urobilinogen LESS THAN 2.0 Urine Leukocyte Esterase NEG Urine RBC 88 Urine WBC 6 Urine Squamous Epithelial Cells <1 Urine Amorphous Sediment MOD Urine Bacteria OCC Urine Mucus FEW Microscopic Urinalysis Comment CATH-CULTURE IND White Blood Count 7.5 Red Blood Count 4.33 Hemoglobin 13.3 Hematocrit 40.0 Mean Corpuscular Volume 92.5 Mean Corpuscular Hemoglobin 30.8 Mean Corpuscular Hemoglobin Concent 33.3 Red Cell Distribution Width 13.9 Platelet Count 208 Mean Platelet Volume 9.1 Neutrophils (%) (Auto) 78.4 Lymphocytes (%) (Auto) 13.3 Monocytes (%) (Auto) 6.4 Eosinophils (%) (Auto) 1.5 Basophils (%) (Auto) 0.4 Neutrophils # (Auto) 5.8 Lymphocytes # (Auto) 1.0 Monocytes # (Auto) 0.5 Eosinophils # (Auto) 0.1 Basophils # (Auto) 0.0 CBC Comment DIFF FINAL Differential Comment Prothrombin Time 11.2 Prothromb Time International Ratio 1.1 Activated Partial Thromboplast Time 27.1 Blood Urea Nitrogen 20 Creatinine 0.62 Random Glucose 96 Calcium Level 9.0 Magnesium Level 2.0 Sodium Level 141 Potassium Level 3.1 Chloride Level 103 Carbon Dioxide Level 34.4 Anion Gap 4 Estimat Glomerular Filtration Rate 91 Troponin I LESS THAN 0.02 Date/Time Source Procedure Growth Status 08/02/17 12:40 Urine Catheterized Urine Urine Culture Pending Received Result Diagram: 08/02/17 1545 08/02/17 1545 Imaging Last Impressions Chest X-Ray 08/02/17 1525 Signed Impressions: Service Date/Time: Wednesday, August 02, 2017 15:37 - CONCLUSION: No acute cardiopulmonary disease identified. Gamal Lama MD Lower Extremity CT 08/02/17 0000 Signed Impressions: Service Date/Time: Wednesday, August 02, 2017 13:29 - CONCLUSION: Negative for acute fracture. Marc Beth MD FACR Head CT 08/02/17 0000 Signed Impressions: Service Date/Time: Wednesday, August 02, 2017 13:24 - CONCLUSION: Negative for acute traumatic event. Moderate periventricular white matter changes. Marc Beth MD FACR Cervical Spine CT 08/02/17 0000 Signed Impressions: Service Date/Time: Wednesday, August 02, 2017 13:27 - CONCLUSION: Extensive degenerative changes in fracture. Stenosis is significant at C3-C4. Marc Beth MD FACR Caprini VTE Risk Assessment Caprini VTE Risk Assessment: Mod/High Risk (score >= 2) Caprini Risk Assessment Model Point Value = 1 Point Value = 2 Point Value = 3 Point Value = 5 Age 41-60 Minor surgery BMI > 25 kg/m2 Swollen legs Varicose veins or History of unexplained or recurrent spontaneous Oral contraceptives or hormone replacement Sepsis (< 1 month) Serious lung disease, including pneumonia (< 1 month) Abnormal pulmonary function Acute myocardial infarction Congestive heart failure (< 1 month) History of inflammatory bowel disease Medical patient at bed rest Age 61-74 Arthroscopic surgery Major open surgery (> 45 min) Laparoscopic surgery (> 45 min) Malignancy Confined to bed (> 72 hours) Immobilizing plaster cast Central venous access Age >= 75 History of VTE Family history of VTE Factor V Leiden Prothrombin [id number] Lupus anticoagulant Anticardiolipin antibodies Elevated serum homocysteine Heparin-induced thrombocytopenia Other congenital or acquired thrombophilia Stroke (< 1 month) Elective arthroplasty Hip, pelvis, or leg fracture Acute spinal cord injury (< 1 month) Prophylaxis Regimen Total Risk Factor Score Risk Level Prophylaxis Regimen 0-1 Low Early ambulation 2 Moderate Order ONE of the following: *Sequential Compression Device (SCD) *Heparin 5000 units SQ BID 3-4 Higher Order ONE of the following medications: *Heparin 5000 units SQ TID *Enoxaparin/Lovenox 40 mg SQ daily (WT < 150 kg, CrCl > 30 mL/min) *Enoxaparin/Lovenox 30 mg SQ daily (WT < 150 kg, CrCl > 10-29 mL/min) *Enoxaparin/Lovenox 30 mg SQ BID (WT < 150 kg, CrCl > 30 mL/min) AND/OR *Sequential Compression Device (SCD) 5 or more Highest Order ONE of the following medications: *Heparin 5000 units SQ TID (Preferred with Epidurals) *Enoxaparin/Lovenox 40 mg SQ daily (WT < 150 kg, CrCl > 30 mL/min) *Enoxaparin/Lovenox 30 mg SQ daily (WT < 150 kg, CrCl > 10-29 mL/min) *Enoxaparin/Lovenox 30 mg SQ BID (WT < 150 kg, CrCl > 30 mL/min) AND *Sequential Compression Device (SCD) Assessment and Plan Assessment and Plan Left leg pain - Most likely musculoskeletal contusion and strain on the lateral muscle compartment - CT is negative for any acute fracture - Fall precautions with physical therapy and OT - CM consult placed as well given patient's frailty - K thermia heating pad Mechanical fall - CT head and neck are neg for frx's Afib - cardizem - Lovenox while pt is inpatient, resume eliquis upon discharge HTN - continue home losartan Hypokalemia - chronic based on home meds, checking Mg level, replace daily Chronic low back pain - continue home tramadol as needed for pain Lovenox while pt is inpatient, resume eliquis upon discharge. Discharge pending pt's PT and OT assessment Ventura Castellanos MD Aug 02, 2017 17:39
[2017-08-02 18:42] VITALS: BP 157/82; PULSE 82; RESP 18; O2SAT 96
[2017-08-02] MEDS: CALCIUM/VITAMIN D 250 MG/125 U TAB PO SCH (19:37)
[2017-08-02] MEDS: traMADol HCL 50 MG TAB PO PRN (19:37)
[2017-08-02] MEDS: POTASSIUM CHLORIDE 20 MEQ CONTROLLED RELEASE TAB PO SCH (19:38)
[2017-08-02] MEDS: DOCUSATE SODIUM 100 MG CAP PO SCH ×2 (19:41→20:36)
[2017-08-02] MEDS: DULoxetine HCl DR 30 MG CAP PO SCH (19:42)
[2017-08-02 20:40] VITALS: BP 140/79; PULSE 90; RESP 16; TEMP 97.9; O2SAT 96
[2017-08-03 00:51] VITALS: BP 148/76; PULSE 93; RESP 18; TEMP 98.8; O2SAT 95
[2017-08-03] MEDS: traMADol HCL 50 MG TAB PO PRN ×3 (04:51→21:40)
[2017-08-03 05:26] VITALS: BP 119/57; PULSE 88; RESP 16; TEMP 98.2; O2SAT 94
[2017-08-03 07:17] VITALS: BP 127/75; PULSE 97; RESP 16; TEMP 98.2; O2SAT 94
[2017-08-03] MEDS: POTASSIUM CHLORIDE 20 MEQ CONTROLLED RELEASE TAB PO SCH (09:06)
[2017-08-03] MEDS: CALCIUM/VITAMIN D 250 MG/125 U TAB PO SCH ×2 (09:06→19:59)
[2017-08-03] MEDS: DILTIAZEM-CD 120 MG CAP ER PO SCH (09:06)
[2017-08-03] MEDS: LOSARTAN 25 MG TAB PO SCH (09:07)
[2017-08-03] MEDS: DULoxetine HCl DR 30 MG CAP PO SCH (09:07)
[2017-08-03] MEDS: SODIUM CHLORIDE 0.9% FLUSH 10 ML FLUSH IVF PRN (09:07)
[2017-08-03] MEDS: ENOXAPARIN SODIUM 30 MG/0.3 ML SYRINGE SQ SCH (09:07)
--- NOTE | 2017-08-03 11:09 | HHI.PR ---
Subjective Remarks Pelvic pain remains. No fractures on imaging thus far. Pelvic x-ray pending. Hypokalemia yesterday, labs pending for today. Objective Vital Signs Date Time Temp Pulse Resp B/P (MAP) Pulse Ox O2 Delivery O2 Flow Rate FiO2 08/03/17 07:17 98.2 97 16 127/75 (92) 94 08/03/17 05:26 98.2 88 16 119/57 (77) 94 08/03/17 00:51 98.8 93 18 148/76 (100) 95 08/02/17 20:40 97.9 90 16 140/79 (99) 96 08/02/17 18:42 82 18 157/82 (107) 96 Room Air 08/02/17 16:20 90 178/88 (118) 97 Room Air 08/02/17 15:45 96 Room Air 08/02/17 15:45 96 Room Air 08/02/17 11:58 97.4 87 16 132/75 (94) 97 I/O 08/02/17 08/02/17 08/02/17 08/03/17 08/03/17 08/03/17 07:00 15:00 23:00 07:00 15:00 23:00 Output Total 200 ml 150 ml Balance -200 ml -150 ml Output Urine Total 200 ml 150 ml # Voids 1 2 3 Result Diagram: 08/02/17 1545 08/02/17 1545 Objective Remarks GENERAL: NAD, A&Ox3 HEAD: Normocephalic. NECK: Supple, trachea midline. No lymphadenopathy. EYES: No scleral icterus. No injection or drainage. CARDIOVASCULAR: Regular rate and rhythm without murmurs, gallops, or rubs. RESPIRATORY: Breath sounds equal bilaterally. No accessory muscle use. GASTROINTESTINAL: Abdomen soft, non-tender, nondistended. MUSCULOSKELETAL: No cyanosis, or edema. Pelvic pain with weightbearing. SKIN: Warm and dry. NEURO: No focal neurological deficitis. A/P Problem List: (1) Hip pain, left ICD Code: M25.552 - Pain in left hip Status: Acute Assessment and Plan Assessment and Plan 87-year-old female admitted secondary to fall with left hip pain Left leg pain No fractures found thus far Pelvic x-ray pending Continue PT Continue OT Mechanical fall Global weakness Plan for custodial facility Afib Continue Cardizem Lovenox for now Resume eliquis upon discharge HTN Continue losartan Hypokalemia Continue to monitor Labs ordered for further monitoring Replace with supplementation as needed Chronic low back pain Continue tramadol DVT prophylaxis Lovenox Sixto Thacker MD Aug 03, 2017 11:09
[2017-08-03 12:06] VITALS: BP 122/68; PULSE 87; RESP 18; TEMP 98; O2SAT 95
[2017-08-03 12:56] LABS: BICARBONATE 28.1 MEQ/L (21.0-32.0); CALCIUM 9.3 MG/DL (8.5-10.1); CREATININE 0.67 MG/DL (0.50-1.00)
[2017-08-03 16:17] VITALS: BP 131/61; PULSE 97; RESP 18; TEMP 98; O2SAT 95
--- NOTE | 2017-08-03 16:38 | RADRPT ---
EXAM DATE/TIME: 08/03/2017 13:49 [place] COMPARISON: CT HIP LEFT W/O CONTRAST, August 02, 2017, 13:29. HIP LEFT (AP&LAT 2/3VWS) WO AP PELVIS, March 03, 2017, 8:44. INDICATIONS : Fell yesterday. MEDICAL HISTORY : None. SURGICAL HISTORY : None. ENCOUNTER: Initial ACUITY: 1 day PAIN SCORE: 7/10 LOCATION: Bilateral pelvis FINDINGS: Stable left femoral compression screws. Osseous structures appear intact without evidence for acute b ricky fracture. Joint spaces are anatomic. Redemonstration of mild degenerative changes about the hips and degenerative spondylosis of the lower lumbar spine. Remainder of the exam is unchanged. CONCLUSION: 1. No acute fracture or dislocation. Juan C Syed MD on August 03, 2017 at 16:35 Board Certified Radiologist. This report was verified electronically.
--- NOTE | 2017-08-03 17:23 | EKG ---
Date Performed: 08/02/2017 Time Performed: 16:51:59 PTAGE: 87 years EKG: ATRIAL FIBRILLATION SEPTAL MYOCARDIAL INFARCTION Since previous tracing, no significant antonette nge noted ABNORMAL ECG PREVIOUS TRACING : 03/02/2017 20.42 DOCTOR: Jenna Pan Interpretating Date/Time 08/03/2017 17:20:58
[2017-08-03 19:54] VITALS: BP 118/64; PULSE 96; RESP 18; TEMP 98; O2SAT 94
[2017-08-03] MEDS: DOCUSATE SODIUM 100 MG CAP PO SCH (19:59)
[2017-08-04 03:15] VITALS: BP 123/71; PULSE 94; RESP 17; TEMP 98.2; O2SAT 95
[2017-08-04] MEDS: SODIUM CHLORIDE 0.9% FLUSH 10 ML FLUSH IVF PRN (08:35)
[2017-08-04] MEDS: CALCIUM/VITAMIN D 250 MG/125 U TAB PO SCH ×2 (08:36→19:56)
[2017-08-04] MEDS: DILTIAZEM-CD 120 MG CAP ER PO SCH (08:36)
[2017-08-04] MEDS: DOCUSATE SODIUM 100 MG CAP PO SCH ×2 (08:36→19:56)
[2017-08-04] MEDS: traMADol HCL 50 MG TAB PO PRN ×2 (08:36→17:14)
[2017-08-04] MEDS: DULoxetine HCl DR 30 MG CAP PO SCH (08:36)
[2017-08-04] MEDS: POTASSIUM CHLORIDE 20 MEQ CONTROLLED RELEASE TAB PO SCH (08:36)
[2017-08-04 09:05] VITALS: BP 137/68; PULSE 90; RESP 18; TEMP 98.3; O2SAT 96
--- NOTE | 2017-08-04 10:28 | HHI.PR ---
Subjective Remarks Patient is still having pain when she tries to ambulate. Continuing physical therapy to monitor for improvement. Thus far no improvement has been seen. Objective Vital Signs Date Time Temp Pulse Resp B/P (MAP) Pulse Ox O2 Delivery O2 Flow Rate FiO2 08/04/17 09:05 98.3 90 18 137/68 (91) 96 08/04/17 03:15 98.2 94 17 123/71 (88) 95 08/03/17 19:54 98.0 96 18 118/64 (82) 94 08/03/17 16:17 98.0 97 18 131/61 (84) 95 08/03/17 12:06 98.0 87 18 122/68 (86) 95 I/O 08/03/17 08/03/17 08/03/17 08/04/17 08/04/17 08/04/17 07:00 15:00 23:00 07:00 15:00 23:00 Intake Total 750 ml Output Total 150 ml 800 ml Balance -150 ml -50 ml Intake Oral 750 ml Output Urine Total 150 ml 800 ml # Voids 3 2 1 Result Diagram: 08/02/17 1545 08/03/17 1201 Objective Remarks GENERAL: NAD, A&Ox3 HEAD: Normocephalic. NECK: Supple, trachea midline. No lymphadenopathy. EYES: No scleral icterus. No injection or drainage. CARDIOVASCULAR: Regular rate and rhythm without murmurs, gallops, or rubs. RESPIRATORY: Breath sounds equal bilaterally. No accessory muscle use. GASTROINTESTINAL: Abdomen soft, non-tender, nondistended. MUSCULOSKELETAL: No cyanosis, or edema. Pelvic pain with weightbearing. SKIN: Warm and dry. NEURO: No focal neurological deficitis. A/P Problem List: (1) Hip pain, left ICD Code: M25.552 - Pain in left hip Status: Acute Assessment and Plan Assessment and Plan 87-year-old female admitted secondary to fall with left hip pain. Continue physical therapy. Plan for [facility] if patient's condition does not resolve. Left leg pain No fractures found thus far Pelvic x-ray pending Continue PT Continue OT Mechanical fall Global weakness Plan for [facility] facility Afib Continue Cardizem Lovenox for now Resume eliquis upon discharge HTN Continue losartan Hypokalemia Continue to monitor Labs ordered for further monitoring Replace with supplementation as needed Chronic low back pain Continue tramadol DVT prophylaxis Lovenox Discharge planning Plan for [facility] facility at time of discharge Sixto Thacker MD Aug 04, 2017 10:28
[2017-08-04] MEDS: ENOXAPARIN SODIUM 30 MG/0.3 ML SYRINGE SQ SCH (11:00)
[2017-08-04] MEDS: LOSARTAN 25 MG TAB PO SCH (11:00)
[2017-08-04 11:45] LABS: CALCIUM 8.5 MG/DL (8.5-10.1); CREATININE 0.52 MG/DL (0.50-1.00); MAGNESIUM 1.8 MG/DL (1.5-2.5)
[2017-08-04 16:22] VITALS: BP 129/64; PULSE 94; RESP 18; TEMP 98.1; O2SAT 94
[2017-08-04 22:12] VITALS: BP 136/73; PULSE 97; RESP 18; TEMP 98.9; O2SAT 95
[2017-08-05] VITALS: BP 121/64; PULSE 74; RESP 18; TEMP 97.9; O2SAT 97
[2017-08-05] MEDS: traMADol HCL 50 MG TAB PO PRN ×2 (03:50→10:00)
[2017-08-05 06:45] VITALS: BP 131/74; PULSE 72; RESP 18; TEMP 97.6; O2SAT 96
[2017-08-05 07:43] VITALS: BP 124/66; PULSE 80; RESP 16; TEMP 98.2; O2SAT 93
[2017-08-05] MEDS: POTASSIUM CHLORIDE 20 MEQ CONTROLLED RELEASE TAB PO SCH (09:08)
[2017-08-05] MEDS: DILTIAZEM-CD 120 MG CAP ER PO SCH (09:08)
[2017-08-05] MEDS: DULoxetine HCl DR 30 MG CAP PO SCH (09:08)
[2017-08-05] MEDS: DOCUSATE SODIUM 100 MG CAP PO SCH (09:08)
[2017-08-05] MEDS: ENOXAPARIN SODIUM 30 MG/0.3 ML SYRINGE SQ SCH (09:08)
[2017-08-05] MEDS: CALCIUM/VITAMIN D 250 MG/125 U TAB PO SCH (09:08)
[2017-08-05] MEDS ORDERED: TRAM50 PO (09:45)
--- NOTE | 2017-08-05 09:49 | HHI.DS ---
Discharge Summary Admission Date Aug 02, 2017 at 17:02 Discharge Date: Aug 05, 2017 Admitting Diagnosis Hip pain, Inability to ambulate. (1) Hip pain, left ICD Code: M25.552 - Pain in left hip Status: Acute Procedures None Brief History - From Admission 87-year-old white female who is being admitted for observation secondary to being unable to bear weight on left leg after fall. Patient was in her usual state of health until earlier today when she bent down to miner pick one of her grandchildren and in the process lost her footing and fell sideways onto her left side. She did strike her head on the ground but denies any loss of consciousness. She denies experiencing any CP or SOB surrounding the incident. 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 But today she was not using it normal she holding onto anything in particular for balance as she bent down to miner pick her grandchild. Patient is repetitively stating that she should have been exercising much more on a daily basis at which point she admits to being quite sedentary most of her days. Patient denies having any bowel or bladder incontinence issues since the fall. Pt did have a L hip fx repair 6 months ago. CBC/BMP: 08/02/17 1545 08/04/17 1017 Significant Findings Laboratory Tests Test 08/02/17 12:40 08/02/17 15:45 08/03/17 12:01 08/04/17 10:17 Urine Turbidity HAZY (CLEAR) Urine Occult Blood MOD (NEG) Urine RBC 88 /hpf (0-3) Urine WBC 6 /hpf (0-5) Urine Bacteria OCC /hpf (NONE) Urine Mucus FEW /lpf (OCC) Neutrophils (%) (Auto) 78.4 % (16.0-70.0) Blood Urea Nitrogen 20 MG/DL (7-18) Potassium Level 3.1 MEQ/L (3.5-5.1) Carbon Dioxide Level 34.4 MEQ/L (21.0-32.0) Anion Gap 4 MEQ/L (5-15) Troponin I LESS THAN 0.02 NG/ML Random Glucose 154 MG/DL (74-106) Estimat Glomerular Filtration Rate 83 ML/MIN (>89) Hospital Course Mrs. Santos is an 87 year old female. She had a fall at home (has been falling more frequently, recently). Her left hip had intractable pain and she could not bear weight. She was brought to the emergency department. Workup was done and no fracture was found at the hip or pelvis. Physical therapy was initiated and patient continues to have pain compromising her ability to ambulate. At this point she'll benefit best from senior living facility with rehabilitation , prior to return home. Pt Condition on Discharge: Stable Discharge Disposition: Discharge to SNF Discharge Time: > 30 minutes Discharge Instructions DIET: Follow Instructions for: As Tolerated, No Restrictions Activities you can perform: Regular-No Restrictions Other Activity Instructions: With assistance Follow up Referrals: PCP Follow-up - 2 Weeks Continued Medications: Apixaban (Eliquis) 2.5 Mg Tab 2.5 MG PO BID for 30 Days, TAB Calcium Carbonate-Vitamin D (Calcium 600+D 200) 600-200 Mg-Unit Tab 1 TAB PO BID for Nutritional Supplement, #90 TAB 0 Refills Diltiazem ER 24 HR (Cartia Xt) 120 Mg Caper 120 MG PO DAILY, #30 CAP 0 Refills Docusate Sodium (Dok) 100 Mg Cap 100 MG PO BID for Constipation, #[address] (Cymbalta DR) 30 Mg Capdr 30 MG PO DIRECTED, #30 CAP 0 Refills Losartan (Cozaar) 25 Mg Tab 25 MG PO DAILY@10 for 30 Days, TAB Magnesium Hydroxide (Eq Milk of Magnesia) 1,200 Mg/15 Ml Ayesha 30 ML PO DAILY PRN for Constipation, #30 BOTTLE Potassium Chloride Microencaps (Potassium Chloride Microencaps) 20 Meq Tab 20 MEQ PO DAILY for 7 Days, TAB Sucralfate (Sucralfate) 1 Gm Tab 1 GM PO Q12HR for Duodenal ulcer, #120 TAB 0 Refills on empty stomach Tramadol (Ultram) 50 Mg Tab 50 MG PO Q6H PRN for PAIN, #40 TAB 0 Refills (This prescription has been renewed ) Discontinued Medications: Cephalexin (Keflex) 500 Mg Cap 500 MG PO Q6H for Infection for 5 Days, #20 CAP 0 Refills Hydrocodone-Acetaminophen (Hydrocodone-Acetaminophen) 7.5-325 mg Tab 1 TAB PO Q4H PRN for PAIN, #20 TAB 0 Refills Sixto Thacker MD Aug 05, 2017 09:49
[2017-08-05] MEDS: LOSARTAN 25 MG TAB PO SCH (10:00)
[2017-08-05 11:33] VITALS: BP 127/70; PULSE 80; RESP 16; TEMP 98.1; O2SAT 93
[2017-08-05] MEDS ORDERED: TRAM50TA PO (13:24)
== END 2017-08-05 14:16 | DRG 556 ==
LOC: NEPC 11:56 → NEDA 17:02 → OBSVTOIN 17:02 → UNDOADMOB 17:02 → INTOOBSV 17:02 → NEPGCP 19:34 → NEDA 19:34 → NEPGCP 19:34
PROVIDERS: ADMIT Hospitalist; ATTEND Hospitalist
DX: M25.552 Pain in left hip (principal); I48.91 Unspecified atrial fibrillation; I25.10 Atherosclerotic heart disease of native coronary artery without angina pectoris; W01.0XXA Fall on same level from slipping, tripping and stumbling without subsequent striking against object, initial encounter; M19.90 Unspecified osteoarthritis, unspecified site; I10 Essential (primary) hypertension; E87.6 Hypokalemia; G89.29 Other chronic pain; M54.5 Low back pain; R29.6 Repeated falls; R53.1 Weakness; R10.2 Pelvic and perineal pain; Y92.019 Unspecified place in single-family (private) house as the place of occurrence of the external cause; Z95.5 Presence of coronary angioplasty implant and graft
CPT/HCPCS: 70450; 71010; 72125; 72170; 73700; 80048; 81001; 83735; 84484; 85025; 85610; 85730; 87086; 93005; J1650